=== PATIENT | female | born 1975 | race Caucasian/White ===

== ENCOUNTER 2017-12-07 18:36 | Emergency (ER) | payer BC ==
[2017-12-07] MEDS ORDERED: Sodium Chloride 0.9% 2.5 ML Syringe FLUSH PRN (20:18)
[2017-12-07] MEDS ORDERED: Sodium Chloride 0.9% 1,000 ML IV ONE (20:18)
[2017-12-07] MEDS ORDERED: Sodium Chloride 0.9% 10 ML Syringe FLUSH PRN (20:18)
--- NOTE | 2017-12-07 20:18 | EDM.PDOC ---
ED HPI GENERAL MEDICAL PROBLEM - General Chief Complaint: Flank Pain Stated Complaint: POSSIBLE KIDNEY INFECTION Time Seen by Provider: 12/07/17 20:15 Source of Information: Reports: Patient History Limitations: Reports: No Limitations - History of Present Illness INITIAL COMMENTS - FREE TEXT/NARRATIVE: HISTORY AND PHYSICAL: []42-year-old female presenting with frequency of urination flank pain History of Present Illness: []This has had multiple infections never had any stones she has to void every 2 minutes Review of Systems: As per history of present illness and below otherwise all systems reviewed and negative. Past medical history: As per history of present illness and as reviewed below otherwise noncontributory. Surgical history: As per history of present illness and as reviewed below otherwise noncontributory. Social history: No reported history of drug or alcohol abuse. Family history: As per history of present illness and as reviewed below otherwise noncontributory. Physical exam: Alert female answering questions appropriately in full sentences without any shortness of breath HEENT: Atraumatic, normocehpalic, pupils reactive, negative for conjunctival pallor or scleral icterus, mucous membranes moist, throat clear, neck supple, nontender, trachea midline. Lungs: Clear to auscultation, breath sounds equal bilaterally, chest non tender. Heart: S1S2, regular, negative for clicks, rubs, or JVD. Abdomen: Soft, nondistended, nontender. Negative for masses or hepatossplenmegaly. Positive for right costrovertebral tenderness. Pelvis: Stable nontender. Genitourinary: Deferred. Rectal: Deferred Extremities: Atraumatic, negative for cords or calf pain. Neurovascular unremarkable. Neuro: Awake, alert, oriented. Cranial nerves II through XII unremarkable. Cerebellum unremarkable. Motor and sensory unremarkable throughout. Exam nonfocal. Discussed with patient and his significant other pyelonephritis which is an infection into the kidney could be cause for this because of her hematuria would like her to follow-up with Dr. Trena Negrete urologist Diagnostics: []Ua abd/pelvis CT Therapeutics: []Rocephin 1 g Impression: []pyleonephritis Hematuria Plan: []home follow up with Dr. Trena Veras, urologist [facility] - Urology [address] [place] [id number] Current emergency room history Definitive disposition and diagnosis as appropriate pending reevaluation and review of above. Onset: Today, Sudden Duration: Getting Worse Location: Reports: Back Quality: Reports: Throbbing Severity: Moderate Improves with: Reports: None Worsens with: Reports: None Associated Symptoms: Reports: No Other Symptoms right flank Pain Score (Numeric/FACES): 5 - Related Data Allergies Allergy/AdvReac Type Severity Reaction Status Date / Time ciprofloxacin [From Cipro] Allergy Vomiting Verified 12/07/17 19:13 ciprofloxacin HCl Allergy Vomiting Verified 12/07/17 19:13 [From Cipro] erythromycin base Allergy Vomiting Verified 12/07/17 19:13 [Erythromycin Base] Sulfa (Sulfonamide Allergy Vomiting Verified 12/07/17 19:13 Antibiotics) Home Meds: Home Meds Nitrofurantoin Monohyd/M-Cryst [Macrobid 100 mg Capsule] 100 mg PO BID #20 capsule 12/07/17 [Rx] 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 ED EXAM, RENAL/ - Physical Exam Exam: See Below (see dictation) Course - Vital Signs Last Recorded V/S: Last Vital Signs Temp 36.4 C 12/07/17 19:00 Pulse 86 12/07/17 19:00 Resp 18 12/07/17 19:00 BP 145/84 H 12/07/17 19:00 Pulse Ox 100 12/07/17 19:00 - Orders/Labs/Meds Orders: Active Orders 24 hr Category Date Time Status Abdomen Pelvis wo Cont [CT] Stat Exams 12/07/17 20:15 Taken CULTURE URINE [RM] Stat Lab 12/07/17 19:03 Ordered UA W/MICROSCOPIC [URIN] Stat Lab 12/07/17 19:04 Ordered Sodium Chloride 0.9% [Normal Saline] 1,000 ml Med 12/07/17 20:18 Active IV STAT Sodium Chloride 0.9% [Saline Flush] Med 12/07/17 20:18 Active 10 ml FLUSH ASDIRECTED PRN Sodium Chloride 0.9% [Saline Flush] Med 12/07/17 20:18 Active 2.5 ml FLUSH ASDIRECTED PRN cefTRIAXone [Rocephin in Dextrose,Iso-Osm 1 GM/50 ML] 1 Med 12/07/17 21:13 Ordered gm Premix Bag 1 bag IV ONETIME Saline Lock Insert [OM.PC] Stat Oth 12/07/17 20:18 Ordered Medication Orders Sodium Chloride (Normal Saline) 1,000 mls @ 999 mls/hr IV STAT ONE Stop: 12/07/17 21:18 Last Admin: 12/07/17 20:39 Dose: 999 mls/hr Sodium Chloride (Saline Flush) 10 ml FLUSH ASDIRECTED PRN PRN Reason: Keep Vein Open Sodium Chloride (Saline Flush) 2.5 ml FLUSH ASDIRECTED PRN PRN Reason: Keep Vein Open Labs: Laboratory Tests 12/07/17 Range/Units 19:04 Urine Color YELLOW Urine Appearance CLEAR Urine pH 6.0 (5.0-8.0) Ur Specific [place] <= 1.005 (1.001-1.035) Urine Protein NEGATIVE (NEGATIVE) mg/dL Urine Glucose (UA) NEGATIVE (NEGATIVE) mg/dL Urine Ketones NEGATIVE (NEGATIVE) mg/dL Urine Occult Blood SMALL H (NEGATIVE) Urine Nitrite NEGATIVE (NEGATIVE) Urine Bilirubin NEGATIVE (NEGATIVE) Urine Urobilinogen 0.2 (<2.0) EU/dL Ur Leukocyte Esterase NEGATIVE (NEGATIVE) Urine RBC 1-3 (0-2/HPF) Urine WBC 0-2 (0-5/HPF) Ur Epithelial Cells FEW (NONE-FEW) Urine Bacteria RARE (NEGATIVE) Meds: Medications Generic Name Dose Route Start Last Admin Trade Name Freq PRN Reason Stop Dose Admin Sodium Chloride 1,000 mls @ 999 mls/hr 12/07/17 20:18 12/07/17 20:39 Normal Saline IV 12/07/17 21:18 999 mls/hr STAT ONE Administration Sodium Chloride 10 ml 12/07/17 20:18 Saline Flush FLUSH ASDIRECTED PRN Keep Vein Open Sodium Chloride 2.5 ml 12/07/17 20:18 Saline Flush FLUSH ASDIRECTED PRN Keep Vein Open Departure - Departure Time of Disposition: 21:14 Disposition: Home, Self-Care 01 Condition: Good Clinical Impression: Pyelonephritis Hematuria Qualifiers: Hematuria type: unspecified type Qualified Code(s): R31.9 - Hematuria, unspecified - Discharge Information Prescriptions: Nitrofurantoin Monohyd/M-Cryst [Macrobid 100 mg Capsule] 100 mg PO BID #20 capsule Referrals: PCP,None [Primary Care Provider] - Trena Veras MD [Physician] - Forms: ED Department Discharge Additional Instructions: The following information is given to patients seen in the emergency department who are being discharged to home. This information is to outline your options for follow-up care. We provide all patients seen in our emergency department with a follow-up referral. The need for follow-up, as well as the timing and circumstances, are variable depending upon the specifics of your emergency department visit. If you don't have a primary care physician on staff, we will provide you with a referral. We always advise you to contact your personal physician following an emergency department visit to inform them of the circumstance of the visit and for follow-up with them and/or the need for any referrals to a consulting specialist. The emergency department will also refer you to a specialist when appropriate. This referral assures that you have the opportunity for followup care with a specialist. All of these measure are taken in an effort to provide you with optimal care, which includes your followup. Under all circumstances we always encourage you to contact your private physician who remains a resource for coordinating your care. When calling for followup care, please make the office aware that this follow-up is from your recent emergency room visit. If for any reason you are refused follow-up, please contact the [facility] emergency department at and asked to speak to the emergency department charge nurse. Is felt to have a pyelonephritis which is a kidney infection on the right side Your urine had blood in it which is called hematuria Recommendation is that you have a referral to Dr. Trena Veras for follow-up care Return to the emergency department as discussed - My Orders Last 24 Hours: My Active Orders 12/07/17 19:03 CULTURE URINE [RM] Stat 12/07/17 19:04 UA W/MICROSCOPIC [URIN] Stat 12/07/17 20:15 Abdomen Pelvis wo Cont [CT] Stat 12/07/17 20:18 Sodium Chloride 0.9% [Normal Saline] 1,000 ml IV STAT Sodium Chloride 0.9% [Saline Flush] 10 ml FLUSH ASDIRECTED PRN Sodium Chloride 0.9% [Saline Flush] 2.5 ml FLUSH ASDIRECTED PRN Saline Lock Insert [OM.PC] Stat 12/07/17 21:13 cefTRIAXone [Rocephin in Dextrose,Iso-Osm 1 GM/50 ML] 1 gm Premix Bag 1 bag IV ONETIME - Assessment/Plan Last 24 Hours: My Active Orders 12/07/17 19:03 CULTURE URINE [RM] Stat 12/07/17 19:04 UA W/MICROSCOPIC [URIN] Stat 12/07/17 20:15 Abdomen Pelvis wo Cont [CT] Stat 12/07/17 20:18 Sodium Chloride 0.9% [Normal Saline] 1,000 ml IV STAT Sodium Chloride 0.9% [Saline Flush] 10 ml FLUSH ASDIRECTED PRN Sodium Chloride 0.9% [Saline Flush] 2.5 ml FLUSH ASDIRECTED PRN Saline Lock Insert [OM.PC] Stat 12/07/17 21:13 cefTRIAXone [Rocephin in Dextrose,Iso-Osm 1 GM/50 ML] 1 gm Premix Bag 1 bag IV ONETIME
[2017-12-07] MEDS ORDERED: cefTRIAXone 1 GM in Premix Bag 1 BAG IV ONE (21:13)
--- NOTE | 2017-12-08 13:59 | CT ---
EXAM DATE: 12/07/17 PATIENT'S AGE: 42 Patient: ZACK WESTON Facility: [place], [place] Site . Site : 1975 Study: CT Abdomen/Pelvis [id number]/29/2018 8:41:35 PM Ordering Physician: Doctor Grigsby Final Report: HISTORY: Right flank pain with urinary frequency. TECHNIQUE: The abdomen and pelvis were scanned using helical technique at 3 mm intervals without IV contrast. Sagittal and coronal reconstructions were performed. FINDINGS: Lung bases: No infiltrate. Liver and gallbladder: The liver parenchyma is homogeneous. No calcified gallstones. Spleen, pancreas and adrenal glands: Unremarkable. Kidneys and bladder: 2.5 cm parapelvic cyst is seen in mid pole left kidney. The right kidney has a small extrarenal pelvis. No calcified urolithiasis or hydronephrosis. The bladder is decompressed. Retroperitoneum an lymph nodes: Aorta is normal in caliber. No pathologic periaortic lymphadenopathy seen. GI tract: Stomach is decompressed. No dilated small bowel loops are seen. Normal appendix. Stool and gas is seen throughout the colon. No diverticulitis. There is no free air in the abdomen. There is no free fluid the pelvis. Pelvic organ: Bilateral tubal ligation clips. Uterus and adnexa are otherwise normal. Abdominal wall: Tiny fat containing umbilical hernia without inflammatory change. Osseous structures: Normal for age. IMPRESSION: 1. 2.5 cm left parapelvic cyst. 2. No calcified urolithiasis, hydronephrosis or ureteral obstruction. 3. Normal appendix. Dictated by Mar Matamoros MD @ 12/07/2017 9:07:43 PM Please note that all CT scans at this facility use dose modulation, iterative reconstruction, and/or weight-based dosing when appropriate to reduce radiation dose to as low as reasonably achievable. Dictated by: Mar Matamoros MD @ 12/07/2017 21:08:09 (Electronic Signature) Report Signed by Proxy. [facility]
== END 2017-12-07 21:50 | disposition home or self-care (01) ==
LOC: MW.ED 18:36
DX: N12 Tubulo-interstitial nephritis, not specified as acute or chronic (principal); Z88.1 Allergy status to other antibiotic agents; Z88.2 Allergy status to sulfonamides; F17.210 Nicotine dependence, cigarettes, uncomplicated
CPT/HCPCS: 74176; 81001; 87086; 96361; 96365; 99284; J0696; J7040; 99283

== ENCOUNTER 2018-09-01 16:14 | Emergency (ER) | payer BC ==
--- NOTE | 2018-09-01 17:14 | EDM.PDOC ---
ED HPI GENERAL MEDICAL PROBLEM - General Chief Complaint: Respiratory Problem Stated Complaint: COUGH Time Seen by Provider: 09/01/18 17:08 Source of Information: Reports: Patient History Limitations: Reports: No Limitations - History of Present Illness INITIAL COMMENTS - FREE TEXT/NARRATIVE: HISTORY AND PHYSICAL: History of present illness: Patient is a 42-year-old female here with complaint of cough. She states she was seen 2 weeks ago and put on antibiotic for acute bronchitis. Was seen again 1 week ago and found to have pneumonia on chest x-ray and treated with levaquin. She states she does feel better but her cough is lingering and she has tightness in her chest. She is coughing so hard she vomits and states she had some blood streaked in her vomit. She does smoke 1/2-1ppd x 18 years. Review of systems: As per history of present illness and below otherwise all systems reviewed and negative. Past medical history: As per history of present illness and as reviewed below otherwise noncontributory. Surgical history: As per history of present illness and as reviewed below otherwise noncontributory. Social history: No reported history of drug or alcohol abuse. Family history: As per history of present illness and as reviewed below otherwise noncontributory. Physical exam: General: Patient sitting comfortably in no acute distress and nontoxic appearing HEENT: Atraumatic, normocephalic, pupils reactive, negative for conjunctival pallor or scleral icterus, mucous membranes moist, throat clear, neck supple, nontender, trachea midline. No meningeal signs. Lungs: Minimal wheezing to lung bases bilaterally, breath sounds equal bilaterally, chest nontender. Heart: S1S2, regular, negative for clicks, rubs, or overt murmur. Abdomen: Soft, nondistended, nontender. Negative for masses or hepatosplenomegaly. Negative for costovertebral tenderness. Pelvis: Stable nontender. Genitourinary: Deferred. Rectal: Deferred. Extremities: Atraumatic, negative for cords or calf pain. Neurovascular unremarkable. Neuro: Awake, alert, oriented. Cranial nerves II through XII unremarkable. Cerebellum unremarkable. Motor and sensory unremarkable throughout. Exam nonfocal. Notes: Diagnostics: Influenza Declined chest x-ray Therapeutics: None Prescriptions: Medrol dose pack Ventolin inhaler Impression: Bronchitis Plan: 1. Take medications as instructed 2. Follow-up with primary care provider 3. Return to ED as needed as discussed Definitive disposition and diagnosis as appropriate pending reevaluation and review of above. - Related Data Allergies Allergy/AdvReac Type Severity Reaction Status Date / Time acetaminophen [From Percocet] Allergy Vomiting Verified 09/01/18 17:06 ciprofloxacin [From Cipro] Allergy Vomiting Verified 09/01/18 17:06 ciprofloxacin HCl Allergy Vomiting Verified 09/01/18 17:06 [From Cipro] erythromycin base Allergy Vomiting Verified 09/01/18 17:06 [Erythromycin Base] hydrocodone [From Vicodin] Allergy Vomiting Verified 09/01/18 17:06 oxycodone [From Percocet] Allergy Vomiting Verified 09/01/18 17:06 Sulfa (Sulfonamide Allergy Vomiting Verified 09/01/18 17:06 Antibiotics) Home Meds: Home Meds Albuterol [Ventolin HFA] 1 puff INH Q4H #1 inhaler 09/01/18 [Rx] methylPREDNISolone [Medrol] 4 mg PO ASDIRECTED #1 tab.ds.pk 09/01/18 [Rx] Past Medical History HEENT History: Reports: None Gastrointestinal History: Reports: GERD Genitourinary History: Reports: None 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 ED EXAM, GENERAL - Physical Exam Exam: See Below (see dictation) Course - Vital Signs Last Recorded V/S: Last Vital Signs Temp 97.0 F 09/01/18 17:03 Pulse 94 09/01/18 17:03 Resp 18 09/01/18 17:03 BP 146/89 H 09/01/18 17:03 Pulse Ox 99 09/01/18 17:03 Departure - Departure Time of Disposition: 18:04 Disposition: Home, Self-Care 01 Condition: Good Clinical Impression: Bronchitis - Discharge Information Prescriptions: Albuterol [Ventolin HFA] 1 puff INH Q4H #1 inhaler methylPREDNISolone [Medrol] 4 mg PO ASDIRECTED #1 tab.ds.pk Referrals: Izabela Celestin, COLLECTION TEAM LEAD [Primary Care Provider] - Forms: ED Department Discharge Additional Instructions: The following information is given to patients seen in the emergency department who are being discharged to home. This information is to outline your options for follow-up care. We provide all patients seen in our emergency department with a follow-up referral. The need for follow-up, as well as the timing and circumstances, are variable depending upon the specifics of your emergency department visit. If you don't have a primary care physician on staff, we will provide you with a referral. We always advise you to contact your personal physician following an emergency department visit to inform them of the circumstance of the visit and for follow-up with them and/or the need for any referrals to a consulting specialist. The emergency department will also refer you to a specialist when appropriate. This referral assures that you have the opportunity for follow-up care with a specialist. All of these measure are taken in an effort to provide you with optimal care, which includes your follow-up. Under all circumstances we always encourage you to contact your private physician who remains a resource for coordinating your care. When calling for follow-up care, please make the office aware that this follow-up is from your recent emergency room visit. If for any reason you are refused follow-up, please contact the [facility] Emergency Department at and asked to speak to the emergency department charge nurse. [facility] [address] [place] [id number] 1. Take medications as instructed 2. Follow-up with primary care provider 3. Return to ED as needed as discussed
== END 2018-09-01 18:14 | disposition home or self-care (01) ==
LOC: MW.ED 16:14
DX: J40 Bronchitis, not specified as acute or chronic (principal); Z88.1 Allergy status to other antibiotic agents; Z88.6 Allergy status to analgesic agent; Z88.2 Allergy status to sulfonamides
CPT/HCPCS: 87804; 99284

== ENCOUNTER 2018-09-09 10:09 | Emergency (ER) | payer BC ==
--- NOTE | 2018-09-09 10:31 | EDM.PDOC ---
ED HPI GENERAL MEDICAL PROBLEM - General Chief Complaint: Lower Extremity Injury/Pain Stated Complaint: LT ANKLE PAIN Time Seen by Provider: 09/09/18 10:21 - History of Present Illness INITIAL COMMENTS - FREE TEXT/NARRATIVE: HISTORY AND PHYSICAL: History of present illness: The patient is a 42-year-old female who presents after rolling her left ankle while getting out of her vehicle this morning. She says she has pain to the left ankle and feels that when she puts weight on it it feels like it is cracking. She has not noticed any swelling there and has no distal sensory changes. She has no proximal leg knee hip or thigh pain. She did not hit her head pass out or black out and has no head neck or back pain. Prior to these events she was in her usual state of good health. Patient states that she had a hysterectomy in the past Review of systems: As per history of present illness and below otherwise all systems reviewed and negative. Past medical history: As per history of present illness and as reviewed below otherwise noncontributory. Surgical history: As per history of present illness and as reviewed below otherwise noncontributory. Social history: No reported history of drug or alcohol abuse. Family history: As per history of present illness and as reviewed below otherwise noncontributory. Physical exam: General: Well-developed well-nourished female who is nontoxic and vital signs were noted by me. HEENT: Atraumatic, normocephalic, negative for conjunctival pallor or scleral icterus, mucous membranes moist, throat clear, neck supple, nontender, trachea midline. Lungs: Clear to auscultation, breath sounds equal bilaterally, chest nontender. Heart: S1S2, regular rhythm and slightly tachycardic rate on my evaluation no overt murmurs Abdomen: Soft, nondistended, nontender. NABS Pelvis: Stable nontender. No lateral hip tenderness on the left Genitourinary: Deferred. Rectal: Deferred. Extremities: Atraumatic appearing with full range of motion of all extremities except the left ankle with some mild tenderness laterally without much soft tissue swelling and no ecchymosis erythema or soft tissue changes. The distal foot and metatarsals are intact without tenderness as is the proximal tib-fib and knee., negative for cords or calf pain. Neurovascular unremarkable. Neuro: Awake, alert, oriented. Cranial nerves II through XII unremarkable. Cerebellum unremarkable. Motor and sensory unremarkable throughout. Exam nonfocal. Diagnostics: X-ray left ankle Therapeutics: Patient says she took Motrin this morning Air cast and crutches Patient is aware of x-ray results including the calcaneal spur. Impression: Left ankle injury Definitive disposition and diagnosis as appropriate pending reevaluation and review of above. Left Ankle Pain Score (Numeric/FACES): 5 - Related Data Allergies Allergy/AdvReac Type Severity Reaction Status Date / Time acetaminophen [From Percocet] Allergy Vomiting Verified 09/09/18 10:21 ciprofloxacin [From Cipro] Allergy Vomiting Verified 09/09/18 10:21 ciprofloxacin HCl Allergy Vomiting Verified 09/09/18 10:21 [From Cipro] erythromycin base Allergy Vomiting Verified 09/09/18 10:21 [Erythromycin Base] hydrocodone [From Vicodin] Allergy Vomiting Verified 09/09/18 10:21 oxycodone [From Percocet] Allergy Vomiting Verified 09/09/18 10:21 Sulfa (Sulfonamide Allergy Vomiting Verified 09/09/18 10:21 Antibiotics) Home Meds: Home Meds . [No Known Home Meds] 09/09/18 [History] Past Medical History HEENT History: Reports: None Gastrointestinal History: Reports: GERD Genitourinary History: Reports: None RNFA History: Reports: Endocrine/Metabolic History: Reports: Obesity/BMI 30+ - Infectious Disease History Infectious Disease History: Reports: Chicken Pox - Past Surgical History Head Surgeries/Procedures: Reports: None HEENT Surgical History: Reports: Tonsillectomy Female Surgical History: Reports: Endometrial Ablation, Tubal Ligation Social & Family History - Family History Family Medical History: Noncontributory - Caffeine Use Caffeine Use: Reports: Soda Review of Systems - Review of Systems Review Of Systems: ROS reveals no pertinent complaints other than HPI. ED EXAM, GENERAL - Physical Exam Exam: See Below (See dictation) Course - Vital Signs Last Recorded V/S: Last Vital Signs Temp 36.2 C 09/09/18 10:22 Pulse 95 09/09/18 10:22 Resp 16 09/09/18 10:22 BP 136/83 09/09/18 10:22 Pulse Ox 96 09/09/18 10:22 - Orders/Labs/Meds Orders: Active Orders 24 hr Category Date Time Status DME for Discharge [COMM] Stat Oth 09/09/18 11:02 Ordered Departure - Departure Time of Disposition: 11:04 Disposition: Home, Self-Care 01 Condition: Good Clinical Impression: Left ankle injury Qualifiers: Encounter type: initial encounter Qualified Code(s): S99.912A - Unspecified injury of left ankle, initial encounter - Discharge Information Referrals: PCP,None [Primary Care Provider] - Forms: ED Department Discharge Additional Instructions: The following information is given to patients seen in the emergency department who are being discharged to home. This information is to outline your options for follow-up care. We provide all patients seen in our emergency department with a follow-up referral. The need for follow-up, as well as the timing and circumstances, are variable depending upon the specifics of your emergency department visit. If you don't have a primary care physician on staff, we will provide you with a referral. We always advise you to contact your personal physician following an emergency department visit to inform them of the circumstance of the visit and for follow-up with them and/or the need for any referrals to a consulting specialist. The emergency department will also refer you to a specialist when appropriate. This referral assures that you have the opportunity for followup care with a specialist. All of these measure are taken in an effort to provide you with optimal care, which includes your followup. Under all circumstances we always encourage you to contact your private physician who remains a resource for coordinating your care. When calling for followup care, please make the office aware that this follow-up is from your recent emergency room visit. If for any reason you are refused follow-up, please contact the [facility] emergency department at and ask to speak to the emergency department charge nurse. [facility]--Orthopedic clinic Professional Building [address] [place] [id number] Ice and elevate the area as much as possible and try not to weight-bear on it using crutches as we discussed. Use [id number] medications for pain management. Please contact our orthopedics clinic for follow-up next week for reevaluation and further care and return to ER as needed and as discussed - My Orders Last 24 Hours: My Active Orders 09/09/18 11:02 DME for Discharge [COMM] Stat - Assessment/Plan Last 24 Hours: My Active Orders 09/09/18 11:02 DME for Discharge [COMM] Stat
--- NOTE | 2018-09-09 10:57 | CR ---
EXAMINATION: Left ankle HISTORY: Pain COMPARISON: None TECHNIQUE: 3 views FINDINGS/IMPRESSION: Tiny opacity noted within the medial malleolus, however no significant overlying soft tissue swelling. Bone mineralization, ankle mortise and joint spaces are preserved. Moderate plantar calcaneal spur.
== END 2018-09-09 11:10 | disposition home or self-care (01) ==
LOC: MW.ED 10:09
DX: S99.912A Unspecified injury of left ankle, initial encounter (principal); Z88.8 Allergy status to other drugs, medicaments and biological substances; Z88.1 Allergy status to other antibiotic agents; Z88.5 Allergy status to narcotic agent; Z88.2 Allergy status to sulfonamides; X50.1XXA Overexertion from prolonged static or awkward postures, initial encounter
CPT/HCPCS: 73610-26-LT; 73610-LT; 99283-25

== ENCOUNTER 2018-09-27 21:59 | Emergency (ER) | payer BC ==
[2018-09-27] MEDS ORDERED: methylPREDNISolone Sodium Succinate 125 MG/2 ML SDV IM ONE (22:15)
[2018-09-27] MEDS ORDERED: Albuterol/Ipratropium 3.0-0.5 MG/3 ML Neb Soln NEB ONE (22:15)
--- NOTE | 2018-09-27 22:15 | EDM.PDOC ---
ED HPI GENERAL MEDICAL PROBLEM - General Chief Complaint: Respiratory Problem Stated Complaint: SOB Time Seen by Provider: 09/27/18 22:15 Source of Information: Reports: Patient - History of Present Illness INITIAL COMMENTS - FREE TEXT/NARRATIVE: HISTORY AND PHYSICAL: History of present illness: [Patient presents with persistent cough over the last month she has previous x- ray she has been on Levaquin for 5 days with improvement during those 5 days however cough returned shortly after she has also been on a steroid and continue his pro-air inhaler now she is a smoker half pack per day long-term she has cut back somewhat coughing currently no fever chills sweats no chest pain shortness breath headache dizziness or palpitation after DuoNeb and Solu- Medrol ] Review of systems: As per history of present illness and below otherwise all systems reviewed and negative. Past medical history: As per history of present illness and as reviewed below otherwise noncontributory. Surgical history: As per history of present illness and as reviewed below otherwise noncontributory. Social history: No reported history of drug or alcohol abuse. Family history: As per history of present illness and as reviewed below otherwise noncontributory. Physical exam: HEENT: Atraumatic, normocephalic, pupils reactive, negative for conjunctival pallor or scleral icterus, mucous membranes moist, throat clear, neck supple, nontender, trachea midline. Lungs: Clear to auscultation, breath sounds equal bilaterally, chest nontender. Heart: S1S2, regular, negative for clicks, rubs, or JVD. Abdomen: Soft, nondistended, nontender. Negative for masses or hepatosplenomegaly. Negative for costovertebral tenderness. Pelvis: Stable nontender. Genitourinary: Deferred. Rectal: Deferred. Extremities: Atraumatic, negative for cords or calf pain. Neurovascular unremarkable. Neuro: Awake, alert, oriented. Cranial nerves II through XII unremarkable. Cerebellum unremarkable. Motor and sensory unremarkable throughout. Exam nonfocal. Diagnostics: [Influenza Chest 1 view ] Therapeutics: [ DuoNeb Solu-Medrol 125 mg IM ] Evoclin 500 mg by mouth daily #10 no refill Medrol Dosepak Continue HFA Impression: [ infiltrates on chest x-ray ] persistent cough Definitive disposition and diagnosis as appropriate pending reevaluation and review of above. chest area Pain Score (Numeric/FACES): 2 - Related Data Allergies Allergy/AdvReac Type Severity Reaction Status Date / Time acetaminophen [From Percocet] Allergy Vomiting Verified 09/27/18 22:06 ciprofloxacin [From Cipro] Allergy Vomiting Verified 09/27/18 22:06 ciprofloxacin HCl Allergy Vomiting Verified 09/27/18 22:06 [From Cipro] erythromycin base Allergy Vomiting Verified 09/27/18 22:06 [Erythromycin Base] hydrocodone [From Vicodin] Allergy Vomiting Verified 09/27/18 22:06 oxycodone [From Percocet] Allergy Vomiting Verified 09/27/18 22:06 Sulfa (Sulfonamide Allergy Vomiting Verified 09/27/18 22:06 Antibiotics) Home Meds: Home Meds Albuterol Sulfate [Albuterol Sulfate Hfa] 8.5 gm IH ASDIRECTED 09/27/18 [History ] Past Medical History HEENT History: Reports: None Cardiovascular History: Reports: None Respiratory History: Reports: None Gastrointestinal History: Reports: GERD Genitourinary History: Reports: None [place] [employer] History: Reports: Musculoskeletal History: Reports: None Neurological History: Reports: None Psychiatric History: Reports: None Endocrine/Metabolic History: Reports: Obesity/BMI 30+ Hematologic History: Reports: None Immunologic History: Reports: None Oncologic (Cancer) History: Reports: None Dermatologic History: Reports: None - Infectious Disease History Infectious Disease History: Reports: None - Past Surgical History Head Surgeries/Procedures: Reports: None HEENT Surgical History: Reports: Tonsillectomy Female Surgical History: Reports: Endometrial Ablation, Tubal Ligation Social & Family History - Family History Family Medical History: Noncontributory - Tobacco Use Smoking Status *Q: Current Every Day Smoker Years of Tobacco use: 15 Packs/Tins Daily: 0.5 - Caffeine Use Caffeine Use: Reports: Soda - Recreational Drug Use Recreational Drug Use: No ED ROS GENERAL - Review of Systems Review Of Systems: See Below ED EXAM, GENERAL - Physical Exam Exam: See Below Course - Vital Signs Last Recorded V/S: Last Vital Signs Temp 98.1 F 09/27/18 22:07 Pulse 125 H 09/27/18 22:07 Resp 20 09/27/18 22:07 BP 144/75 H 09/27/18 22:07 Pulse Ox 96 09/27/18 22:07 - Orders/Labs/Meds Orders: Active Orders 24 hr Category Date Time Status RT Aerosol Therapy [RC] ASDIRECTED Care 09/27/18 22:15 Active Meds: Medications Discontinued Medications Generic Name Dose Route Start Last Admin Trade Name Porter PRN Reason Stop Dose Admin Albuterol/Ipratropium 3 ml 09/27/18 22:15 09/27/18 22:28 Duoneb 3.0-0.5 Mg/3 Ml NEB 09/27/18 22:16 3 ml ONETIME ONE Administration Methylprednisolone Sodium Succinate 125 mg 09/27/18 22:15 09/27/18 22:29 Solu-Medrol IM 09/27/18 22:16 125 mg ONETIME ONE Administration Departure - Departure Time of Disposition: 23:12 Disposition: Home, Self-Care 01 Condition: Good Clinical Impression: Pulmonary infiltrate on chest x-ray, Persistent cough - Discharge Information Referrals: PCP,None [Primary Care Provider] - Forms: ED Department Discharge Additional Instructions: The following information is given to patients seen in the emergency department who are being discharged to home. This information is to outline your options for follow-up care. We provide all patients seen in our emergency department with a follow-up referral. The need for follow-up, as well as the timing and circumstances, are variable depending upon the specifics of your emergency department visit. If you don't have a primary care physician on staff, we will provide you with a referral. We always advise you to contact your personal physician following an emergency department visit to inform them of the circumstance of the visit and for follow-up with them and/or the need for any referrals to a consulting specialist. The emergency department will also refer you to a specialist when appropriate. This referral assures that you have the opportunity for follow-up care with a specialist. All of these measure are taken in an effort to provide you with optimal care, which includes your follow-up. Under all circumstances we always encourage you to contact your private physician who remains a resource for coordinating your care. When calling for follow-up care, please make the office aware that this follow-up is from your recent emergency room visit. If for any reason you are refused follow-up, please contact the [facility] emergency department at and asked to speak to the emergency department charge nurse. - My Orders Last 24 Hours: My Active Orders 09/27/18 22:15 RT Aerosol Therapy [RC] ASDIRECTED - Assessment/Plan Last 24 Hours: My Active Orders 09/27/18 22:15 RT Aerosol Therapy [RC] ASDIRECTED
--- NOTE | 2018-09-27 23:03 | CR ---
INDICATION: Shortness of breath, history of bronchitis and pneumonia TECHNIQUE: Chest radiograph 1 view COMPARISON: 08/25/2018 FINDINGS: Mediastinum: The mediastinum is normal in appearance. The heart silhouette is normal in size and morphology. Lung: Diffuse ill-defined airspace infiltrates are present in the mid lower lung zones bilaterally, new from prior examination. No sign of pleural effusion seen. No pneumothorax is identified. Musculoskeletal: Unremarkable for age. IMPRESSION: 1. Diffuse ill-defined airspace infiltrates are present in the mid lower lung zones bilaterally, new from prior examination. Findings are suspicious for pneumonia. Dictated by Ricardo Chaney MD @ 09/27/2018 11:01:00 PM Dictated by: Ricardo Chaney MD @ 09/27/2018 23:01:03 (Electronically Signed)
== END 2018-09-27 23:22 | disposition home or self-care (01) ==
LOC: MW.ED 21:59
DX: R05 Cough (principal); R91.8 Other nonspecific abnormal finding of lung field; F17.210 Nicotine dependence, cigarettes, uncomplicated; Z88.1 Allergy status to other antibiotic agents; Z88.6 Allergy status to analgesic agent; Z88.2 Allergy status to sulfonamides; Z98.51 Tubal ligation status; Z98.890 Other specified postprocedural states
CPT/HCPCS: 71045; 87804; 94640; 96372; 99284; J2930; J7620-GY

== ENCOUNTER 2019-08-28 16:58 | Emergency (ER) | payer BC, OTHER ==
--- NOTE | 2019-08-28 18:12 | EDM.PDOC ---
ED HPI GENERAL MEDICAL PROBLEM - General Chief Complaint: Respiratory Problem Stated Complaint: ANEMONIA Time Seen by Provider: 08/28/19 18:12 Source of Information: Reports: Patient History Limitations: Reports: No Limitations - History of Present Illness INITIAL COMMENTS - FREE TEXT/NARRATIVE: HISTORY AND PHYSICAL: History of present illness: Patient is a 43-year-old female presents to the ED with complaint of possible pneumonia. Patient states she was treated for pneumonia 2 weeks ago. She states she finished levequin about 1 week ago. She had a repeat chest x-ray done 4 days ago and was told pneumonia was still present but her symptoms were improved and no further antibiotic started. Patient states in the past 4 days she has had worsening cough and shortness of breath. She states she had a fever of 101F last night. Review of systems: As per history of present illness and below otherwise all systems reviewed and negative. Past medical history: As per history of present illness and as reviewed below otherwise noncontributory. Surgical history: As per history of present illness and as reviewed below otherwise noncontributory. Social history: No reported history of drug or alcohol abuse. Family history: As per history of present illness and as reviewed below otherwise noncontributory. Physical exam: General: Patient sitting comfortably in no acute distress and nontoxic appearing HEENT: Atraumatic, normocephalic, pupils reactive, negative for conjunctival pallor or scleral icterus, mucous membranes moist, throat clear, neck supple, nontender, trachea midline. No meningeal signs. Lungs: Rhonchi throughout all lung vick. chest nontender. Heart: S1S2, regular, negative for clicks, rubs, or overt murmur. Abdomen: Soft, nondistended, nontender. Negative for masses or hepatosplenomegaly. Negative for costovertebral tenderness. No rigidity, rebound , guarding. Pelvis: Stable nontender. Genitourinary: Deferred. Rectal: Deferred. Extremities: Atraumatic, negative for cords or calf pain. Neurovascular unremarkable. Neuro: Awake, alert, oriented. Cranial nerves II through XII unremarkable. Cerebellum unremarkable. Motor and sensory unremarkable throughout. Exam nonfocal. Notes: Patient has elevated WBC. She states she did have an elevated WBC 2 weeks ago when she was initially started antibiotics. Radiologist read CXR as possible CHF, patients BNP is <500 (197) and patient denies lower extremity swelling. No history of CHF. Findings more likely pneumonia given patient history and presentation. Patient was offered admission for IV antibiotics secondary to failed outpatient treatment. She declines admission at this time. Diagnostics: CBC, CMP, lactate, blood culture x 2, CXR, BNP Therapeutics: 500mL bolus IV 1g Rocephin IV Prescriptions: Azithromycin Impression: Pneumonia Plan: Take medications as prescribed Follow up with primary care provider Return to ED as needed as discussed Definitive disposition and diagnosis as appropriate pending reevaluation and review of above. lungs Pain Score (Numeric/FACES): 3 - Related Data Allergies Allergy/AdvReac Type Severity Reaction Status Date / Time acetaminophen [From Percocet] Allergy Vomiting Verified 08/28/19 17:54 ciprofloxacin [From Cipro] Allergy Vomiting Verified 08/28/19 17:54 ciprofloxacin HCl Allergy Vomiting Verified 08/28/19 17:54 [From Cipro] erythromycin base Allergy Vomiting Verified 08/28/19 17:54 [Erythromycin Base] hydrocodone [From Vicodin] Allergy Vomiting Verified 08/28/19 17:54 oxycodone [From Percocet] Allergy Vomiting Verified 08/28/19 17:54 Sulfa (Sulfonamide Allergy Vomiting Verified 08/28/19 17:54 Antibiotics) Home Meds: Home Meds Albuterol Sulfate [Albuterol Sulfate Hfa] 8.5 gm IH ASDIRECTED 09/27/18 [History ] Azithromycin [Zithromax] 250 mg PO ASDIRECTED #1 dosepk 08/28/19 [Rx] methylPREDNISolone [Medrol] 4 mg PO ASDIRECTED #1 tab.ds.pk 08/28/19 [Rx] Past Medical History HEENT History: Reports: None Cardiovascular History: Reports: None Respiratory History: Reports: None Gastrointestinal History: Reports: GERD Genitourinary History: Reports: None FACTORY EXPERT History: Reports: Musculoskeletal History: Reports: None Neurological History: Reports: None Psychiatric History: Reports: None Endocrine/Metabolic History: Reports: Obesity/BMI 30+ Hematologic History: Reports: None Immunologic History: Reports: None Oncologic (Cancer) History: Reports: None Dermatologic History: Reports: None - Infectious Disease History Infectious Disease History: Reports: None - Past Surgical History Head Surgeries/Procedures: Reports: None HEENT Surgical History: Reports: Tonsillectomy Female Surgical History: Reports: Endometrial Ablation, Tubal Ligation Social & Family History - Family History Family Medical History: Noncontributory - Tobacco Use Smoking Status *Q: Current Every Day Smoker Years of Tobacco use: 16 Packs/Tins Daily: 0.5 - Caffeine Use Caffeine Use: Reports: Soda - Recreational Drug Use Recreational Drug Use: No ED ROS GENERAL - Review of Systems Review Of Systems: Comprehensive ROS is negative, except as noted in HPI. ED EXAM, GENERAL - Physical Exam Exam: See Below (see dictation) Course - Vital Signs Last Recorded V/S: Last Vital Signs Temp 97.3 F 08/28/19 17:50 Pulse 110 H 08/28/19 17:50 Resp 20 08/28/19 17:50 BP 147/84 H 08/28/19 17:50 Pulse Ox 98 08/28/19 17:50 - Orders/Labs/Meds Orders: Active Orders 24 hr Category Date Time Status CULTURE BLOOD [BC] Stat Lab 08/28/19 18:50 Received CULTURE BLOOD [BC] Stat Lab 08/28/19 19:01 Received Sodium Chloride 0.9% [Normal Saline] 500 ml Med 08/28/19 19:15 Active IV .BOLUS Sodium Chloride 0.9% [Saline Flush] Med 08/28/19 18:17 Active 10 ml FLUSH ASDIRECTED PRN Sodium Chloride 0.9% [Saline Flush] Med 08/28/19 18:17 Active 2.5 ml FLUSH ASDIRECTED PRN Blood Culture x2 Reflex Set [OM.PC] Stat Oth 08/28/19 18:17 Ordered Saline Lock Insert [OM.PC] Stat Oth 08/28/19 18:17 Ordered Medication Orders Sodium Chloride (Normal Saline) 500 mls @ 500 mls/hr IV .BOLUS CHLOÉ Last Admin: 08/28/19 19:16 Dose: 500 mls/hr Sodium Chloride (Saline Flush) 10 ml FLUSH ASDIRECTED PRN PRN Reason: Keep Vein Open Sodium Chloride (Saline Flush) 2.5 ml FLUSH ASDIRECTED PRN PRN Reason: Keep Vein Open Labs: Laboratory Tests 08/28/19 08/28/19 08/28/19 Range/Units 18:50 18:50 18:50 WBC 18.91 H (4.0-11.0) K/uL RBC 4.52 (4.30-5.90) M/uL Hgb 12.4 (12.0-16.0) g/dL Hct 37.5 (36.0-46.0) % MCV 83.0 (80.0-98.0) fL MCH 27.4 (27.0-32.0) pg MCHC 33.1 (31.0-37.0) g/dL RDW Std Deviation 43.4 (28.0-62.0) fl RDW Coeff of Aniket 15 (11.0-15.0) % Plt Count 300 (150-400) K/uL MPV 9.20 (7.40-12.00) fL Neut % (Auto) 84.3 H (48.0-80.0) % Lymph % (Auto) 8.4 L (16.0-40.0) % [place] % (Auto) 6.0 (0.0-15.0) % Eos % (Auto) 1.0 (0.0-7.0) % Baso % (Auto) 0.3 (0.0-1.5) % Neut # (Auto) 15.9 H (1.4-5.7) K/uL Lymph # (Auto) 1.6 (0.6-2.4) K/uL [place] # (Auto) 1.1 H (0.0-0.8) K/uL Eos # (Auto) 0.2 (0.0-0.7) K/uL Baso # (Auto) 0.1 (0.0-0.1) K/uL Nucleated RBC % 0.0 /100WBC Nucleated RBCs # 0 K/uL Lactate 1.0 (0.20-2.00) mmol/L Sodium 142 (136-145) mmol/L Potassium 4.0 (3.5-5.1) mmol/L Chloride 106 (98-107) mmol/L Carbon Dioxide 23.5 (21.0-32.0) mmol/L BUN 9 (7.0-18.0) mg/dL Creatinine 0.7 (0.6-1.0) mg/dL Est Cr Clr Drug Dosing 95.17 mL/min Estimated GFR (MDRD) > 60.0 ml/min Glucose 99 (74-106) mg/dL Calcium 9.1 (8.5-10.1) mg/dL Total Bilirubin 1.6 H (0.2-1.0) mg/dL AST 15 (15-37) IU/L ALT 19 (14-63) IU/L Alkaline Phosphatase 99 (46-116) U/L B-Natriuretic Peptide (<100) PG/ML Total Protein 7.6 (6.4-8.2) g/dL Albumin 3.8 (3.4-5.0) g/dL Globulin 3.8 (2.6-4.0) g/dL Albumin/Globulin Ratio 1.0 (0.9-1.6) 08/28/19 Range/Units 18:50 WBC (4.0-11.0) K/uL RBC (4.30-5.90) M/uL Hgb (12.0-16.0) g/dL Hct (36.0-46.0) % MCV (80.0-98.0) fL MCH (27.0-32.0) pg MCHC (31.0-37.0) g/dL RDW Std Deviation (28.0-62.0) fl RDW Coeff of Aniket (11.0-15.0) % Plt Count (150-400) K/uL MPV (7.40-12.00) fL Neut % (Auto) (48.0-80.0) % Lymph % (Auto) (16.0-40.0) % [place] % (Auto) (0.0-15.0) % Eos % (Auto) (0.0-7.0) % Baso % (Auto) (0.0-1.5) % Neut # (Auto) (1.4-5.7) K/uL Lymph # (Auto) (0.6-2.4) K/uL [place] # (Auto) (0.0-0.8) K/uL Eos # (Auto) (0.0-0.7) K/uL Baso # (Auto) (0.0-0.1) K/uL Nucleated RBC % /100WBC Nucleated RBCs # K/uL Lactate (0.20-2.00) mmol/L Sodium (136-145) mmol/L Potassium (3.5-5.1) mmol/L Chloride (98-107) mmol/L Carbon Dioxide (21.0-32.0) mmol/L BUN (7.0-18.0) mg/dL Creatinine (0.6-1.0) mg/dL Est Cr Clr Drug Dosing mL/min Estimated GFR (MDRD) ml/min Glucose (74-106) mg/dL Calcium (8.5-10.1) mg/dL Total Bilirubin (0.2-1.0) mg/dL AST (15-37) IU/L ALT (14-63) IU/L Alkaline Phosphatase (46-116) U/L B-Natriuretic Peptide 197 H (<100) PG/ML Total Protein (6.4-8.2) g/dL Albumin (3.4-5.0) g/dL Globulin (2.6-4.0) g/dL Albumin/Globulin Ratio (0.9-1.6) Meds: Medications Generic Name Dose Route Start Last Admin Trade Name Lucioq PRN Reason Stop Dose Admin Sodium Chloride 500 mls @ 500 mls/hr 08/28/19 19:15 08/28/19 19:16 Normal Saline IV 500 mls/hr .BOLUS CHLOÉ Administration Sodium Chloride 10 ml 08/28/19 18:17 Saline Flush FLUSH ASDIRECTED PRN Keep Vein Open Sodium Chloride 2.5 ml 08/28/19 18:17 Saline Flush FLUSH ASDIRECTED PRN Keep Vein Open Discontinued Medications Generic Name Dose Route Start Last Admin Trade Name Porter PRN Reason Stop Dose Admin Ceftriaxone Sodium 1 gm 08/28/19 20:03 08/28/19 20:14 Rocephin IM 08/28/19 20:04 Not Given ONETIME ONE Sodium Chloride 1,000 mls @ 999 mls/hr 08/28/19 18:17 08/28/19 20:14 Normal Saline IV 08/28/19 19:17 Not Given STAT ONE Ceftriaxone Sodium/Dextrose Confirm 08/28/19 20:11 08/28/19 20:14 Rocephin In Dextrose,Iso-Osm 1 Gm/50 Ml Administered 08/28/19 20:12 Not Given Dose 50 mls @ as directed .ROUTE .STK-MED ONE Ceftriaxone Sodium/Dextrose 1 50 mls @ 100 mls/hr 08/28/19 20:13 08/28/19 20: 15 gm/ Premix IV 02/17/20 20:42 100 mls/hr ONETIME ONE Administration Departure - Departure Time of Disposition: 21:15 Disposition: Home, Self-Care 01 Condition: Good Clinical Impression: Pneumonia - Discharge Information Prescriptions: Azithromycin [Zithromax] 250 mg PO ASDIRECTED #1 dosepk methylPREDNISolone [Medrol] 4 mg PO ASDIRECTED #1 tab.ds.pk Instructions: Community-Acquired Pneumonia, Adult, [id number] Referrals: Izabela Celestin, PROGRAM MANAGEMENT INTERN [Primary Care Provider] - Forms: ED Department Discharge Additional Instructions: The following information is given to patients seen in the emergency department who are being discharged to home. This information is to outline your options for follow-up care. We provide all patients seen in our emergency department with a follow-up referral. The need for follow-up, as well as the timing and circumstances, are variable depending upon the specifics of your emergency department visit. If you don't have a primary care physician on staff, we will provide you with a referral. We always advise you to contact your personal physician following an emergency department visit to inform them of the circumstance of the visit and for follow-up with them and/or the need for any referrals to a consulting specialist. The emergency department will also refer you to a specialist when appropriate. This referral assures that you have the opportunity for follow-up care with a specialist. All of these measure are taken in an effort to provide you with optimal care, which includes your follow-up. Under all circumstances we always encourage you to contact your private physician who remains a resource for coordinating your care. When calling for follow-up care, please make the office aware that this follow-up is from your recent emergency room visit. If for any reason you are refused follow-up, please contact the [facility] Emergency Department at and asked to speak to the emergency department charge nurse. [facility] [address] [place] [id number] [facility] [address] [place] [id number] Take medications as prescribed Follow up with primary care provider Return to ED as needed as discussed Sepsis Event Note - Evaluation Sepsis Screening Result: No Definite Risk - Focused Exam Vital Signs: Vital Signs Temp Pulse Resp BP Pulse Ox 08/28/19 17:50 97.3 F 110 H 20 147/84 H 98 Date Exam was Performed: 08/28/19 Time Exam was Performed: 21:15 - My Orders Last 24 Hours: My Active Orders 08/28/19 18:17 Sodium Chloride 0.9% [Saline Flush] 10 ml FLUSH ASDIRECTED PRN Sodium Chloride 0.9% [Saline Flush] 2.5 ml FLUSH ASDIRECTED PRN Blood Culture x2 Reflex Set [OM.PC] Stat Saline Lock Insert [OM.PC] Stat 08/28/19 18:50 CULTURE BLOOD [BC] Stat 08/28/19 19:01 CULTURE BLOOD [BC] Stat 08/28/19 19:15 Sodium Chloride 0.9% [Normal Saline] 500 ml IV .BOLUS - Assessment/Plan Last 24 Hours: My Active Orders 08/28/19 18:17 Sodium Chloride 0.9% [Saline Flush] 10 ml FLUSH ASDIRECTED PRN Sodium Chloride 0.9% [Saline Flush] 2.5 ml FLUSH ASDIRECTED PRN Blood Culture x2 Reflex Set [OM.PC] Stat Saline Lock Insert [OM.PC] Stat 08/28/19 18:50 CULTURE BLOOD [BC] Stat 08/28/19 19:01 CULTURE BLOOD [BC] Stat 08/28/19 19:15 Sodium Chloride 0.9% [Normal Saline] 500 ml IV .BOLUS
[2019-08-28] MEDS ORDERED: Sodium Chloride 0.9% 10 ML Syringe FLUSH PRN (18:17)
[2019-08-28] MEDS ORDERED: Sodium Chloride 0.9% 2.5 ML Syringe FLUSH PRN (18:17)
[2019-08-28] MEDS ORDERED: Sodium Chloride 0.9% 1,000 ML IV ONE (18:17)
--- NOTE | 2019-08-28 18:37 | CR ---
Chest: 2 views of the chest were obtained. Comparison: Prior chest x-ray of 08/25/18. Heart is enlarged. This is more prominent than on previous exam. Pulmonary vessels are also slightly more prominent. Findings are felt compatible with early CHF. Bony structures appear within normal limits. Impression: 1. Findings suspicious for early CHF. Echocardiogram should be considered to evaluate the heart. Diagnostic code #3 Study was dictated in [place] Standard Time
[2019-08-28] MEDS ORDERED: Sodium Chloride 0.9% 500 ML IV SCH (19:15)
[2019-08-28 19:30] LABS: BLOOD UREA NITROGEN,BUN 9 mg/dL (7.0-18.0); CARBON DIOXIDE,CO2 23.5 mmol/L (21.0-32.0); CHLORIDE,CL 106 mmol/L (98-107); GLUCOSE RANDOM 99 mg/dL (74-106); SODIUM,NA 142 mmol/L (136-145)
[2019-08-28] MEDS ORDERED: cefTRIAXone 1 GM Vial IM ONE (20:03)
[2019-08-28] MEDS ORDERED: cefTRIAXone 1 GM in Premix Bag 1 BAG IV ONE (20:13)
== END 2019-08-28 21:15 | disposition home or self-care (01) ==
LOC: MW.ED 16:58
DX: J18.9 Pneumonia, unspecified organism (principal); E66.9 Obesity, unspecified; F17.210 Nicotine dependence, cigarettes, uncomplicated; Z68.32 Body mass index [BMI] 32.0-32.9, adult; Z88.6 Allergy status to analgesic agent; Z88.1 Allergy status to other antibiotic agents; Z88.5 Allergy status to narcotic agent; Z88.2 Allergy status to sulfonamides; Z79.899 Other long term (current) drug therapy
CPT/HCPCS: 36415; 71046; 80053; 83605; 83880; 85025; 87040; 87804; 96361; 96365; 99285; J0696; J7040

== ENCOUNTER 2019-10-25 21:31 | Emergency (ER) | payer OTHER ==
[2019-10-25] MEDS ORDERED: Albuterol/Ipratropium 3.0-0.5 MG/3 ML Neb Soln NEB ONE (21:52)
--- NOTE | 2019-10-25 21:58 | EDM.PDOC ---
ED HPI GENERAL MEDICAL PROBLEM - General Chief Complaint: Respiratory Problem Stated Complaint: SHORTNESS OF BREATH Time Seen by Provider: 10/25/19 21:38 Source of Information: Reports: Patient History Limitations: Reports: No Limitations - History of Present Illness INITIAL COMMENTS - FREE TEXT/NARRATIVE: HISTORY OF PRESENT ILLNESS: Patient is a 44-year-old female who presents with dyspnea and chest pain which started approximately 6 PM this evening. Patient states that she has had pneumonia 4 times this year and is concerned that she has another episode. Patient has right-sided chest pain which radiates to her right shoulder and back. She rates the pain as 2 out of 10 in severity and describes this chest wall tightness with occasional sharp pain. Denies any abdominal pain or rash. Denies any fevers chills or recent cough although she does states she has a runny nose. Patient is a smoker and smoked for 16 years approximately half a pack per day. She has no formal diagnosis of COPD but is on inhaler. Denies any history of asthma. Denies any leg swelling, recent travel, recent surgeries or history of thromboembolic disease. No family history of CAD. REVIEW OF SYSTEMS: Other than the symptoms associated with the present events, the following is reported with regard to recent health: General: (-) fever. HENT: (+) congestion. Respiratory: (-) cough. Cardiovascular: (+) chest pain. GI: (-) abdominal pain. : (-) urinary complaints. Musculoskeletal: (-) other aches or pains. Endocrine: (-) generalized weakness. Neurological: (-) localized weakness. Skin: (-) rash PAST MEDICAL HISTORY: reviewed as per nursing notes SOCIAL HISTORY: reviewed as per nursing notes, MEDICATIONS: Per nurse's note ALLERGIES: Per nurse's note, reviewed by me PHYSICAL EXAMINATION: GENERALIZED APPEARANCE: well developed, well nourished in no distress VITAL SIGNS: Per nurse's note, reviewed by me SKIN: Warm, dry; (-) cyanosis; (-) rash. HEAD: (-) scalp swelling, (-) tenderness. EYES: (-) conjunctival pallor, (-) scleral icterus. ENMT: (-) stridor; mucous membranes moist. NECK: (-) tenderness, (-) stiffness, CHEST AND RESPIRATORY: (-) rales, (-) rhonchi, (+)expiratory wheezes; breath sounds equal bilaterally. reproducible chest wall tenderness. no crepitus HEART AND CARDIOVASCULAR: tachycardic, regular rhythm (-) murmur, (-) gallop. ABDOMEN AND GI: Soft; (-) tenderness, (-) guarding, (-) rebound, (-) palpable masses, EXTREMITIES: (-) deformity, (-) edema. NEURO AND PSYCH: Alert. Cranial nerves grossly intact; strength symmetric. gait steady DIAGNOSTICS: EKG: st at 116 bpm. nml axis. no [address] elevation. CXR: as read by radiologist, reviewed by myself Labs reviewed EMERGENCY DEPARTMENT COURSE AND TREATMENT: Patient's condition remained stable during Emergency Department evaluation. Given nebs with improvement. CXR unremarkable but D-dimer elevated, CT ordered and findings noted. BNP 184. COVID -19 testing ordered as she has not had this performed during any prior episodes and due to findings on CT. Concern for pneumonia. Pt states she is not allergic to Azithromycin and steroids have worked well in the past. Also concern for possible underlying COPD. Based on history, physical exam, and diagnostic evaluation, the patient appears to have symptoms consistent with a pneumonia. The vital signs show normal oxygen saturation on room air, with a normal respiratory pattern, and clear lung vick on reevaluation. This is most likely bacterial in etiology. The patient appears to be in no distress, appears well- hydrated and is ambulating in the ED without difficulty. The patient was given discharge precautions with instructions to return for difficulty breathing, not tolerating oral food or fluids, any respiratory distress, or new symptoms. 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 Return immediately with any new or worsening symptoms. Regarding reproducible chest wall pain: Pt with low HEART score and unremarkable EKG troponin. Based on history, physical exam, and diagnostic evaluation, the patient appears to have symptoms consistent with low risk chest pain. The physical exam was unremarkable including normal chest and respiratory exam. Laboratory testing was performed. I do not believe the symptoms are related to acute ischemic chest pain. I also do not believe this is a vascular catastrophe such as an aortic dissection or an acute rupture of an abdominal aortic aneurysm. The patient is low risk for acute thromboembolic phenomena. The patient will be discharged to follow-up with their primary care physician in the next 24-48 hours or return here if unable to make an appointment with formerly [facility] primary care physician. Patient was advised of our evaluation and instructed to seek medical attention immediately if symptoms change, worsen, or new symptoms develop. PLAN AND FOLLOW-UP: Patient received written and verbal instructions regarding this condition. Return to ED immediately with any new or worsening symptoms. Follow up to be arranged by patient with pcp in 1-2 days for further evaluation. Given discharge precautions. Patient expressed verbal understanding. Chest Pain Score (Numeric/FACES): 3 - Related Data Allergies Allergy/AdvReac Type Severity Reaction Status Date / Time acetaminophen [From Percocet] Allergy Vomiting Verified 10/25/19 21:43 ciprofloxacin [From Cipro] Allergy Vomiting Verified 10/25/19 21:43 ciprofloxacin HCl Allergy Vomiting Verified 10/25/19 21:43 [From Cipro] erythromycin base Allergy Vomiting Verified 10/25/19 21:43 [Erythromycin Base] hydrocodone [From Vicodin] Allergy Vomiting Verified 10/25/19 21:43 oxycodone [From Percocet] Allergy Vomiting Verified 10/25/19 21:43 Sulfa (Sulfonamide Allergy Vomiting Verified 10/25/19 21:43 Antibiotics) Home Meds: Home Meds Albuterol Sulfate [Albuterol Sulfate Hfa] 8.5 gm IH ASDIRECTED 09/27/18 [History ] Azithromycin 250 mg PO DAILY #6 tablet 10/26/19 [Rx] predniSONE [Prednisone] 50 mg PO DAILY #5 tablet 10/26/19 [Rx] Past Medical History HEENT History: Reports: None Cardiovascular History: Reports: None Respiratory History: Reports: None Gastrointestinal History: Reports: GERD Genitourinary History: Reports: None 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: Musculoskeletal History: Reports: None Neurological History: Reports: None Psychiatric History: Reports: None Endocrine/Metabolic History: Reports: Obesity/BMI 30+ Hematologic History: Reports: None Immunologic History: Reports: None Oncologic (Cancer) History: Reports: None Dermatologic History: Reports: None - Infectious Disease History Infectious Disease History: Reports: None - Past Surgical History Head Surgeries/Procedures: Reports: None HEENT Surgical History: Reports: Tonsillectomy Female Surgical History: Reports: Endometrial Ablation, Tubal Ligation Social & Family History - Family History Family Medical History: Noncontributory - Tobacco Use Smoking Status *Q: Current Every Day Smoker Years of Tobacco use: 18 Packs/Tins Daily: 0.5 - Caffeine Use Caffeine Use: Reports: None - Recreational Drug Use Recreational Drug Use: No ED ROS GENERAL - Review of Systems Review Of Systems: See Below (see dictation) ED EXAM, GENERAL - Physical Exam Exam: See Below (see dictation) Course - Vital Signs Last Recorded V/S: Last Vital Signs Temp 97.7 F 10/25/19 21:40 Pulse 114 H 10/26/19 00:00 Resp 18 10/26/19 00:00 BP 138/77 10/26/19 00:00 Pulse Ox 97 10/26/19 00:00 - Orders/Labs/Meds Orders: Active Orders 24 hr Category Date Time Status EKG Documentation Completion [RC] STAT Care 10/25/19 21:52 Inactive EKG Documentation Completion [RC] STAT Care 10/25/19 21:53 Active RT Aerosol Therapy [RC] ASDIRECTED Care 10/25/19 21:53 Active CORONAVIRUS COVID-19 PCR PHL Stat Lab 10/26/19 00:21 Ordered CULTURE BLOOD [BC] Stat Lab 10/25/19 22:03 Received CULTURE BLOOD [BC] Stat Lab 10/25/19 22:11 Received Blood Culture x2 Reflex Set [OM.PC] Stat Oth 10/25/19 21:52 Ordered Saline Lock Insert [OM.PC] Stat Oth 10/25/19 21:55 Ordered Labs: Laboratory Tests 10/25/19 10/25/19 10/25/19 Range/Units 22:03 22:03 22:03 WBC 16.19 H (4.0-11.0) K/uL RBC 4.59 (4.30-5.90) M/uL Hgb 12.1 (12.0-16.0) g/dL Hct 38.3 (36.0-46.0) % MCV 83.4 (80.0-98.0) fL MCH 26.4 L (27.0-32.0) pg MCHC 31.6 (31.0-37.0) g/dL RDW Std Deviation 47.3 (28.0-62.0) fl RDW Coeff of Aniket 16 H (11.0-15.0) % Plt Count 270 (150-400) K/uL MPV 8.80 (7.40-12.00) fL Neut % (Auto) 85.3 H (48.0-80.0) % Lymph % (Auto) 6.9 L (16.0-40.0) % [place] % (Auto) 5.6 (0.0-15.0) % Eos % (Auto) 1.8 (0.0-7.0) % Baso % (Auto) 0.4 (0.0-1.5) % Neut # (Auto) 13.8 H (1.4-5.7) K/uL Lymph # (Auto) 1.1 (0.6-2.4) K/uL [place] # (Auto) 0.9 H (0.0-0.8) K/uL Eos # (Auto) 0.3 (0.0-0.7) K/uL Baso # (Auto) 0.1 (0.0-0.1) K/uL Nucleated RBC % 0.0 /100WBC Nucleated RBCs # 0 K/uL D-Dimer, Quantitative 6.49 H (0.0-0.50) mg/L FEU Lactate 1.8 (0.20-2.00) mmol/L Sodium (136-145) mmol/L Potassium (3.5-5.1) mmol/L Chloride (98-107) mmol/L Carbon Dioxide (21.0-32.0) mmol/L BUN (7.0-18.0) mg/dL Creatinine (0.6-1.0) mg/dL Est Cr Clr Drug Dosing mL/min Estimated GFR (MDRD) ml/min Glucose (74-106) mg/dL Calcium (8.5-10.1) mg/dL Total Bilirubin (0.2-1.0) mg/dL AST (15-37) IU/L ALT (14-63) IU/L Alkaline Phosphatase (46-116) U/L Troponin I (0.000-0.056) ng/mL B-Natriuretic Peptide (<100) PG/ML Total Protein (6.4-8.2) g/dL Albumin (3.4-5.0) g/dL Globulin (2.6-4.0) g/dL Albumin/Globulin Ratio (0.9-1.6) 10/25/19 10/25/19 Range/Units 22:03 22:03 WBC (4.0-11.0) K/uL RBC (4.30-5.90) M/uL Hgb (12.0-16.0) g/dL Hct (36.0-46.0) % MCV (80.0-98.0) fL MCH (27.0-32.0) pg MCHC (31.0-37.0) g/dL RDW Std Deviation (28.0-62.0) fl RDW Coeff of Aniket (11.0-15.0) % Plt Count (150-400) K/uL MPV (7.40-12.00) fL Neut % (Auto) (48.0-80.0) % Lymph % (Auto) (16.0-40.0) % [place] % (Auto) (0.0-15.0) % Eos % (Auto) (0.0-7.0) % Baso % (Auto) (0.0-1.5) % Neut # (Auto) (1.4-5.7) K/uL Lymph # (Auto) (0.6-2.4) K/uL [place] # (Auto) (0.0-0.8) K/uL Eos # (Auto) (0.0-0.7) K/uL Baso # (Auto) (0.0-0.1) K/uL Nucleated RBC % /100WBC Nucleated RBCs # K/uL D-Dimer, Quantitative (0.0-0.50) mg/L FEU Lactate (0.20-2.00) mmol/L Sodium 140 (136-145) mmol/L Potassium 4.1 (3.5-5.1) mmol/L Chloride 104 (98-107) mmol/L Carbon Dioxide 25.2 (21.0-32.0) mmol/L BUN 11 (7.0-18.0) mg/dL Creatinine 0.9 (0.6-1.0) mg/dL Est Cr Clr Drug Dosing 73.27 mL/min Estimated GFR (MDRD) > 60.0 ml/min Glucose 116 H (74-106) mg/dL Calcium 8.1 L (8.5-10.1) mg/dL Total Bilirubin 1.1 H (0.2-1.0) mg/dL AST 15 (15-37) IU/L ALT 16 (14-63) IU/L Alkaline Phosphatase 87 (46-116) U/L Troponin I < 0.050 (0.000-0.056) ng/mL B-Natriuretic Peptide 184 H (<100) PG/ML Total Protein 7.1 (6.4-8.2) g/dL Albumin 3.5 (3.4-5.0) g/dL Globulin 3.6 (2.6-4.0) g/dL Albumin/Globulin Ratio 1.0 (0.9-1.6) Meds: Medications Discontinued Medications Generic Name Dose Route Start Last Admin Trade Name Freq PRN Reason Stop Dose Admin Albuterol/Ipratropium 3 ml 10/25/19 21:52 10/25/19 22:15 Duoneb 3.0-0.5 Mg/3 Ml NEB 10/25/19 21:53 3 ml ONETIME ONE Administration Iopamidol 100 ml 10/25/19 23:41 10/25/19 23:43 Isovue Multipack-370 (76%) IVPUSH 10/25/19 23:42 100 ml ONETIME ONE Administration Departure - Departure Time of Disposition: 00:23 Disposition: Home, Self-Care 01 Condition: Good Clinical Impression: Pneumonia, Chest wall pain, Shortness of breath - Discharge Information *PRESCRIPTION DRUG MONITORING PROGRAM REVIEWED*: Not Applicable *COPY OF PRESCRIPTION DRUG MONITORING REPORT IN PATIENT HITESH: Not Applicable Prescriptions: Azithromycin 250 mg PO DAILY #6 tablet predniSONE [Prednisone] 50 mg PO DAILY #5 tablet Instructions: Steps to Quit Smoking, [id number], Community-Acquired Pneumonia , Adult, Chest Wall Pain, [id number] Referrals: PCP,Chiquita [Primary Care Provider] - Ruma Rai [Ordering Only Provider] - 1 Day Forms: ED Department Discharge Additional Instructions: The following information is given to patients seen in the emergency department who are being discharged to home. This information is to outline your options for follow-up care. We provide all patients seen in our emergency department with a follow-up referral. The need for follow-up, as well as the timing and circumstances, are variable depending upon the specifics of your emergency department visit. If you don't have a primary care physician on staff, we will provide you with a referral. We always advise you to contact your personal physician following an emergency department visit to inform them of the circumstance of the visit and for follow-up with them and/or the need for any referrals to a consulting specialist. The emergency department will also refer you to a specialist when appropriate. This referral assures that you have the opportunity for follow-up care with a specialist. All of these measure are taken in an effort to provide you with optimal care, which includes your follow-up. Under all circumstances we always encourage you to contact your private physician who remains a resource for coordinating your care. When calling for follow-up care, please make the office aware that this follow-up is from your recent emergency room visit. If for any reason you are refused follow-up, please contact the [facility] Emergency Department at and asked to speak to the emergency department charge nurse. Sepsis Event Note - Evaluation Sepsis Screening Result: No Definite Risk - Focused Exam Vital Signs: Vital Signs Temp Pulse Resp BP Pulse Ox 10/26/19 00:00 114 H 18 138/77 97 10/25/19 21:40 97.7 F 117 H 22 H 135/87 98 Date Exam was Performed: 10/26/19 Time Exam was Performed: 00:28 - My Orders Last 24 Hours: My Active Orders 10/25/19 21:52 EKG Documentation Completion [RC] STAT Blood Culture x2 Reflex Set [OM.PC] Stat 10/25/19 21:53 EKG Documentation Completion [RC] STAT RT Aerosol Therapy [RC] ASDIRECTED 10/25/19 21:55 Saline Lock Insert [OM.PC] Stat 10/25/19 22:03 CULTURE BLOOD [BC] Stat 10/25/19 22:11 CULTURE BLOOD [BC] Stat 10/26/19 00:21 CORONAVIRUS COVID-19 PCR PHL Stat - Assessment/Plan Last 24 Hours: My Active Orders 10/25/19 21:52 EKG Documentation Completion [RC] STAT Blood Culture x2 Reflex Set [OM.PC] Stat 10/25/19 21:53 EKG Documentation Completion [RC] STAT RT Aerosol Therapy [RC] ASDIRECTED 10/25/19 21:55 Saline Lock Insert [OM.PC] Stat 10/25/19 22:03 CULTURE BLOOD [BC] Stat 10/25/19 22:11 CULTURE BLOOD [BC] Stat 10/26/19 00:21 CORONAVIRUS COVID-19 PCR PHL Stat
--- NOTE | 2019-10-25 22:31 | CR ---
Chest: Portable view of the chest was obtained. Comparison: Prior chest x-ray of 08/28/19. Heart is felt to be slightly enlarged. Central pulmonary vessels are slightly increased which appears stable. No acute parenchymal change is otherwise seen. Bony structures are grossly intact. Impression: 1. Findings as noted above which are unchanged from previous chest x-ray and presumably are chronic. 2. Nothing acute is otherwise seen. Diagnostic code #3 Study was dictated in MDT
[2019-10-25 22:42] LABS: BLOOD UREA NITROGEN,BUN 11 mg/dL (7.0-18.0); CARBON DIOXIDE,CO2 25.2 mmol/L (21.0-32.0); CHLORIDE,CL 104 mmol/L (98-107); GLUCOSE RANDOM 116 mg/dL (74-106); POTASSIUM,K 4.1 mmol/L (3.5-5.1); SODIUM,NA 140 mmol/L (136-145)
[2019-10-25] MEDS ORDERED: Iopamidol 755 MG/ML 200 ML Multipack Bottle IVPUSH ONE (23:41)
--- NOTE | 2019-10-26 00:14 | CT ---
INDICATION: Shortness of breath, chest pain, elevated D-dimer, history of pneumonia COMPARISON: None TECHNIQUE: Contrast enhanced axial CT imaging through the chest, optimized for assessment of the pulmonary arterial tree. 90 mL Isovue 370 contrast agent was administered intravenously. Sagittal and coronal reconstructions are provided. FINDINGS: There is diffuse bilateral ground-glass airspace opacity with interstitial thickening more pronounced in the lung bases, consistent with pulmonary edema. Scattered small nodular opacities in the peripheral upper lungs bilaterally, worse on the left, likely represent superimposed infectious infiltrates. There are small bilateral pleural effusions. There is mediastinal and bilateral hilar lymphadenopathy. There is adequate opacification of the pulmonary arterial tree without evidence of thromboembolism. The main pulmonary artery is nondilated. The heart is non enlarged. There is no pericardial effusion. There is normal caliber of the thoracic aorta. The thoracic osseous structures are unremarkable. No significant abnormality is demonstrated in the visualized upper abdomen. IMPRESSION: 1. Diffuse pulmonary edema with small bilateral pleural effusions. Correlate for congestive heart failure. 2. Bilateral peripheral upper lobe nodular opacities likely represent superimposed infectious infiltrates. 3. Mediastinal and bilateral hilar lymphadenopathy, presumably reactive. 4. No evidence of pulmonary thromboembolism. Please note that all CT scans at this facility use dose modulation, iterative reconstruction, and/or weight-based dosing when appropriate to reduce radiation dose to as low as reasonably achievable. Dictated by Paulino Sky MD @ Oct 25 2019 11:51PM Signed by Dr. Paulino Sky @ Oct 26 2019 12:12AM
== END 2019-10-26 00:40 | disposition home or self-care (01) ==
LOC: MW.ED 21:31
DX: J18.9 Pneumonia, unspecified organism (principal); F17.210 Nicotine dependence, cigarettes, uncomplicated; Z68.32 Body mass index [BMI] 32.0-32.9, adult; E66.9 Obesity, unspecified; Z88.6 Allergy status to analgesic agent; Z88.1 Allergy status to other antibiotic agents; Z88.5 Allergy status to narcotic agent; Z88.2 Allergy status to sulfonamides
CPT/HCPCS: 36415; 71045; 71275; 80053; 83605; 83880; 84484; 85025; 85379; 87040; 87635; 93005; 94640; 99285; Q9967; 99284; J7620-GY; U0002

== ENCOUNTER 2020-07-15 05:49 | Emergency (ER) | payer OTHER ==
[2020-07-15] MEDS ORDERED: Sodium Chloride 0.9% 2.5 ML Syringe FLUSH PRN (06:12)
[2020-07-15] MEDS ORDERED: Sodium Chloride 0.9% 10 ML Syringe FLUSH PRN (06:12)
--- NOTE | 2020-07-15 06:13 | EDM.PDOC ---
<AelxisBal Austin - Last Filed: 07/15/20 09:17> ED HPI GENERAL MEDICAL PROBLEM - General Chief Complaint: Chest Pain Stated Complaint: CHEST PAIN Time Seen by Provider: 07/15/20 06:03 - Related Data Allergies Allergy/AdvReac Type Severity Reaction Status Date / Time acetaminophen [From Percocet] Allergy Vomiting Verified 07/15/20 06:00 ciprofloxacin [From Cipro] Allergy Vomiting Verified 07/15/20 06:00 ciprofloxacin HCl Allergy Vomiting Verified 07/15/20 06:00 [From Cipro] erythromycin base Allergy Vomiting Verified 07/15/20 06:00 [Erythromycin Base] hydrocodone [From Vicodin] Allergy Vomiting Verified 07/15/20 06:00 oxycodone [From Percocet] Allergy Vomiting Verified 07/15/20 06:00 Sulfa (Sulfonamide Allergy Vomiting Verified 07/15/20 06:00 Antibiotics) Home Meds: Home Meds Albuterol [Ventolin HFA] 1 puff INH ASDIRECTED PRN 07/15/20 [History] Aspirin 81 mg PO DAILY 07/15/20 [History] Fluticasone Propion/Salmeterol [Advair 250-50 Diskus] 1 puff INH BID 07/15/20 [History] Pantoprazole Sodium [Protonix] 40 mg PO DAILY 07/15/20 [History] Warfarin [Coumadin] 3 mg PO ASDIRECTED 07/15/20 [History] buPROPion HCL [Wellbutrin SR] 150 mg PO BID 07/15/20 [History] nitrofurantoin macrocrystaL [Nitrofurantoin] 100 mg PO BID 07/15/20 [History] Departure - Departure Time of Disposition: 09:17 Disposition: Home, Self-Care 01 Condition: Good Clinical Impression: Chest pain - Discharge Information *PRESCRIPTION DRUG MONITORING PROGRAM REVIEWED*: Not Applicable *COPY OF PRESCRIPTION DRUG MONITORING REPORT IN PATIENT HITESH: Not Applicable Instructions: Nonspecific Chest Pain, Adult, [id number], Angina, [id number] Referrals: PCP,None [Primary Care Provider] - Forms: ED Department Discharge Additional Instructions: The following information is given to patients seen in the emergency department who are being discharged to home. This information is to outline your options for follow-up care. We provide all patients seen in our emergency department with a follow-up referral. The need for follow-up, as well as the timing and circumstances, are variable depending upon the specifics of your emergency department visit. If you don't have a primary care physician on staff, we will provide you with a referral. We always advise you to contact your personal physician following an emergency department visit to inform them of the circumstance of the visit and for follow-up with them and/or the need for any referrals to a consulting specialist. The emergency department will also refer you to a specialist when appropriate. This referral assures that you have the opportunity for follow-up care with a specialist. All of these measure are taken in an effort to provide you with optimal care, which includes your follow-up. Under all circumstances we always encourage you to contact your private physic kamilah who remains a resource for coordinating your care. When calling for follow- up care, please make the office aware that this follow-up is from your recent emergency room visit. If for any reason you are refused follow-up, please contact the [facility] Emergency Department at and asked to speak to the emergency department charge nurse. Please follow up with your primary care physician. If you do not have a primary care physician, see below: [facility] [address] [place] [id number] [facility] [address] [place] [id number] Please follow-up with your creative arts therapist. If you continue to have chest pain or other concerning symptoms please return to the ED. <Martín Dennis - Last Filed: 07/15/20 19:34> ED HPI GENERAL MEDICAL PROBLEM - History of Present Illness INITIAL COMMENTS - FREE TEXT/NARRATIVE: HISTORY AND PHYSICAL: History of present illness: This is a 44-year-old female with a history significant for mechanical mitral valve replacement that was performed in April 2020 in [facility] who presents ER today complaining of sharp midsternal chest pain that awoke her from sleep today at around 4 AM. Patient reports that the pain is sharp in nature and increases with deep inspiration and when she attempts to cough. Patient denies any shortness of breath, nausea, vomiting, pain rating down her arms jaw or back, diaphoresis. She denies any exertional component with the pain. Patient denies any recent fevers, shakes, chills, nausea, vomiting, diarrhea, dysuria, frequency, urgency, abdominal pain. Patient denies any history of CAD or AK in the past. Patient reports she is currently on warfarin for her recent valve replacement. Patient denies any calf tenderness or lower extremity edema. Positive for tobacco use, negative alcohol or drugs. Review of systems: As per history of present illness and below otherwise all systems reviewed and negative. Past medical history: As per history of present illness and as reviewed below otherwise noncontributory. Surgical history: As per history of present illness and as reviewed below otherwise noncontributory. Social history: No reported history of drug or alcohol abuse. Family history: As per history of present illness and as reviewed below otherwise noncontributory. Physical exam: Constitutional: Patient is oriented to person, place, and time. Appears well- developed and well-nourished. No distress. HEENT: Moist mucous membranes Head: Normocephalic and atraumatic Eyes: Right eye exhibits no discharge. Left eye exhibits no discharge. No scleral icterus Neck: Normal range of motion. No tracheal deviation present. Cardiovascular: Normal rate and regular rhythm. Pulmonary: Effort normal, no respiratory distress. Abdominal: No distention Musculoskeletal: Normal range of motion Neurologic: Alert and oriented to person, place and time. Skin: Novice, warm and dry. Psychiatric: Normal mood and affect. Behavior is normal. Judgment and thought content normal. Nursing note and vital signs have been reviewed Patient's ER physical exam is significant for reproducible tenderness to palpation to her midsternal region. Patient reports pain increases when she takes a deep inspiration here in the ED. Patient also reports pain increases when she coughs in the ED. This patient was seen and evaluated during the 2019 SARS-CoV-2 novel coronavirus pandemic period. Community viral transmission is ongoing at time of this encounter and the emergency department is operating under pandemic response procedures. Diagnostics: CBC, CMP, troponin, INR, chest x-ray, EKG EKG: As interpreted by ER physician: Sonny: Nonspecific ST-T wave abnormalities Normal axis No evidence of ST elevation AK Normal sinus rhythm heart rate of 95 Chest Xray: Normal cardiac silhouette No infiltrates or effusions identified. No PTX No evidence of acute bony fracture. As interpreted by ER MD: [employer]: Ultram 50 mg p.o. Assessment and plan: This is a 44-year-old female with history significant for mechanical mitral valve replacement in April 2020 and [facility] who presents ER today complaining of sharp midsternal chest pain that woke her from sleep around 4 AM. Pain appears to be reproducible with deep inspiration as well as with coughing in the ED. patient's presentation in the ER today does not appear to be highly consistent with acute coronary syndrome. Patient will have a troponin level drawn here in the ED as well as an EKG. If patient's initial troponin level is negative, I plan on ordering a 2-hour troponin level on her. If patient's to our troponin level is negative, given her low risk status, I feel patient will be stable for discharge to home with outpatient follow-up with her creative arts therapist. Definitive disposition and diagnosis as appropriate pending reevaluation and review of above. 7:34 PM July 15, 2020: Phone call follow-up made to assure continuity of care. Patient reports that she feels better but is still having some pain with inspiration. Patient reports that she has made follow-up appointment with her doctor. chest pain Pain Score (Numeric/FACES): 4 Past Medical History HEENT History: Reports: None Cardiovascular History: Reports: None Other Cardiovascular History: Valve Problem Respiratory History: Reports: None Gastrointestinal History: Reports: GERD Genitourinary History: Reports: None SANITATION LABORER History: Reports: Musculoskeletal History: Reports: None Neurological History: Reports: None Psychiatric History: Reports: None Endocrine/Metabolic History: Reports: None, Obesity/BMI 30+ Insulin Pump Model and Internal Audit Consultant: None Hematologic History: Reports: None Immunologic History: Reports: None Oncologic (Cancer) History: Reports: None Dermatologic History: Reports: None - Infectious Disease History Infectious Disease History: Reports: None - Past Surgical History Head Surgeries/Procedures: Reports: None HEENT Surgical History: Reports: Tonsillectomy Cardiovascular Surgical History: Reports: Other (See Below) Other Cardiovascular Surgeries/Procedures: Mitral Valve Replacement Female Surgical History: Reports: Endometrial Ablation, Tubal Ligation Social & Family History - Family History Family Medical History: No Pertinent Family History - Tobacco Use Tobacco Use Status *Q: Current Every Day Tobacco User Years of Tobacco use: 19 Packs/Tins Daily: 0.5 - Caffeine Use Caffeine Use: Reports: Soda - Recreational Drug Use Recreational Drug Use: No ED ROS GENERAL - Review of Systems Review Of Systems: See Below ED EXAM, GENERAL - Physical Exam Exam: See Below #1 Interpretation EKG Interpretation Comments: EKG: As interpreted by ER physician: Sonny: Nonspecific ST-T wave abnormalities Normal axis No evidence of ST elevation AK Normal sinus rhythm heart rate of 95 Course - Vital Signs Last Recorded V/S: Last Vital Signs Temp 98.7 F 07/15/20 09:30 Pulse 97 07/15/20 09:28 Resp 10 L 07/15/20 09:28 BP 147/87 H 07/15/20 09:28 Pulse Ox 100 07/15/20 09:28 - Orders/Labs/Meds Orders: Active Orders 24 hr Category Date Time Status Saline Lock Insert [OM.PC] Stat Oth 07/15/20 06:12 Ordered Labs: Laboratory Tests 07/15/20 07/15/20 07/15/20 Range/Units 05:55 05:55 05:55 WBC 12.42 H (4.0-11.0) K/uL RBC 5.10 (4.30-5.90) M/uL Hgb 13.9 (12.0-16.0) g/dL Hct 42.9 (36.0-46.0) % MCV 84.1 (80.0-98.0) fL MCH 27.3 (27.0-32.0) pg MCHC 32.4 (31.0-37.0) g/dL RDW Std Deviation 42.9 (28.0-62.0) fl RDW Coeff of Aniket 14 (11.0-15.0) % Plt Count 375 (150-400) K/uL MPV 9.10 (7.40-12.00) fL Neut % (Auto) 77.5 (48.0-80.0) % Lymph % (Auto) 11.8 L (16.0-40.0) % Day % (Auto) 6.9 (0.0-15.0) % Eos % (Auto) 3.1 (0.0-7.0) % Baso % (Auto) 0.7 (0.0-1.5) % Neut # (Auto) 9.6 H (1.4-5.7) K/uL Lymph # (Auto) 1.5 (0.6-2.4) K/uL Day # (Auto) 0.9 H (0.0-0.8) K/uL Eos # (Auto) 0.4 (0.0-0.7) K/uL Baso # (Auto) 0.1 (0.0-0.1) K/uL Nucleated RBC % 0.0 /100WBC Nucleated RBCs # 0 K/uL INR 3.45 D-Dimer, Quantitative 0.44 (0.0-0.50) mg/L FEU Sodium 137 (136-145) mmol/L Potassium 4.2 (3.5-5.1) mmol/L Chloride 103 (98-107) mmol/L Carbon Dioxide 26.3 (21.0-32.0) mmol/L BUN 12 (7.0-18.0) mg/dL Creatinine 1.0 (0.6-1.0) mg/dL Est Cr Clr Drug Dosing 65.95 mL/min Estimated GFR (MDRD) > 60.0 ml/min Glucose 124 H (74-106) mg/dL Calcium 8.9 (8.5-10.1) mg/dL Total Bilirubin 0.9 (0.2-1.0) mg/dL AST 34 (15-37) IU/L ALT 14 (14-63) IU/L Alkaline Phosphatase 104 (46-116) U/L Troponin I < 0.050 (0.000-0.056) ng/mL Total Protein 8.0 (6.4-8.2) g/dL Albumin 3.6 (3.4-5.0) g/dL Globulin 4.4 H (2.6-4.0) g/dL Albumin/Globulin Ratio 0.8 L (0.9-1.6) 07/15/20 Range/Units 08:10 WBC (4.0-11.0) K/uL RBC (4.30-5.90) M/uL Hgb (12.0-16.0) g/dL Hct (36.0-46.0) % MCV (80.0-98.0) fL MCH (27.0-32.0) pg MCHC (31.0-37.0) g/dL RDW Std Deviation (28.0-62.0) fl RDW Coeff of Aniket (11.0-15.0) % Plt Count (150-400) K/uL MPV (7.40-12.00) fL Neut % (Auto) (48.0-80.0) % Lymph % (Auto) (16.0-40.0) % Day % (Auto) (0.0-15.0) % Eos % (Auto) (0.0-7.0) % Baso % (Auto) (0.0-1.5) % Neut # (Auto) (1.4-5.7) K/uL Lymph # (Auto) (0.6-2.4) K/uL Day # (Auto) (0.0-0.8) K/uL Eos # (Auto) (0.0-0.7) K/uL Baso # (Auto) (0.0-0.1) K/uL Nucleated RBC % /100WBC Nucleated RBCs # K/uL INR D-Dimer, Quantitative (0.0-0.50) mg/L FEU Sodium (136-145) mmol/L Potassium (3.5-5.1) mmol/L Chloride (98-107) mmol/L Carbon Dioxide (21.0-32.0) mmol/L BUN (7.0-18.0) mg/dL Creatinine (0.6-1.0) mg/dL Est Cr Clr Drug Dosing mL/min Estimated GFR (MDRD) ml/min Glucose (74-106) mg/dL Calcium (8.5-10.1) mg/dL Total Bilirubin (0.2-1.0) mg/dL AST (15-37) IU/L ALT (14-63) IU/L Alkaline Phosphatase (46-116) U/L Troponin I < 0.050 (0.000-0.056) ng/mL Total Protein (6.4-8.2) g/dL Albumin (3.4-5.0) g/dL Globulin (2.6-4.0) g/dL Albumin/Globulin Ratio (0.9-1.6) Meds: Medications Discontinued Medications Generic Name Dose Route Start Last Admin Trade Name Freq PRN Reason Stop Dose Admin Sodium Chloride 10 ml 07/15/20 06:12 Saline Flush FLUSH ASDIRECTED PRN Keep Vein Open Sodium Chloride 2.5 ml 07/15/20 06:12 Saline Flush FLUSH ASDIRECTED PRN Keep Vein Open Sepsis Event Note (ED) - Evaluation Sepsis Screening Result: No Definite Risk - Focused Exam Vital Signs: Vital Signs Temp Pulse Resp BP Pulse Ox 07/15/20 09:30 98.7 F 07/15/20 09:28 97 10 L 147/87 H 100 07/15/20 08:24 98 11 L 153/86 H 98 07/15/20 07:54 98 11 L 160/88 H 98 07/15/20 07:39 94 14 153/89 H 98 - My Orders Last 24 Hours: My Active Orders 07/15/20 06:12 Saline Lock Insert [OM.PC] Stat - Assessment/Plan Last 24 Hours: My Active Orders 07/15/20 06:12 Saline Lock Insert [OM.PC] Stat
--- NOTE | 2020-07-15 06:37 | CR ---
INDICATION: Chest pain COMPARISON: October 25, 2019 TECHNIQUE: Single-view chest radiograph FINDINGS: TUBES AND LINES: None. HEART AND MEDIASTINUM: Heart size normal. Ring structure overlying the precordium may represent of valve repair but there has been no median sternotomy. LUNGS AND PLEURAL SPACES: The lungs appear normal.The pleural spaces are unremarkable. OSSEOUS STRUCTURES: Age-appropriate appearance. No acute focal finding. IMPRESSION: No evidence of active pulmonary disease Dictated by Emanuel Conte MD @ Jul 15 2020 6:33AM Signed by Dr. Emanuel Conte @ Jul 15 2020 6:35AM
[2020-07-15 06:54] LABS: BLOOD UREA NITROGEN,BUN 12 mg/dL (7.0-18.0); CARBON DIOXIDE,CO2 26.3 mmol/L (21.0-32.0); CHLORIDE,CL 103 mmol/L (98-107); GLUCOSE RANDOM 124 mg/dL (74-106); POTASSIUM,K 4.2 mmol/L (3.5-5.1); SODIUM,NA 137 mmol/L (136-145)
== END 2020-07-15 09:35 | disposition home or self-care (01) ==
LOC: MW.ED 05:49
DX: R07.2 Precordial pain (principal); E66.9 Obesity, unspecified; Z68.34 Body mass index [BMI] 34.0-34.9, adult; Z88.6 Allergy status to analgesic agent; Z88.1 Allergy status to other antibiotic agents; Z88.5 Allergy status to narcotic agent; Z88.2 Allergy status to sulfonamides; Z79.82 Long term (current) use of aspirin; Z79.899 Other long term (current) drug therapy
CPT/HCPCS: 36415; 71045; 71045-26; 80053; 84484; 85025; 85379; 85610; 93005; 93010; 99284; 99285-25

== ENCOUNTER 2020-09-18 09:42 | Emergency (ER) | payer OTHER ==
[2020-09-18] MEDS ORDERED: Sodium Chloride 0.9% 10 ML Syringe FLUSH PRN (10:06)
[2020-09-18] MEDS ORDERED: Ondansetron 4 MG/2 ML SDV IVPUSH ONE (10:06)
[2020-09-18] MEDS ORDERED: Sodium Chloride 0.9% 2.5 ML Syringe FLUSH PRN (10:06)
[2020-09-18] MEDS ORDERED: Sodium Chloride 0.9% 1,000 ML IV ONE ×2 (10:06→11:33)
--- NOTE | 2020-09-18 10:13 | EDM.PDOC ---
ED HPI GENERAL MEDICAL PROBLEM - General Chief Complaint: Abdominal Pain Stated Complaint: PAIN RIGHT SIDE NAUSEA Time Seen by Provider: 09/18/20 10:10 Source of Information: Reports: Patient History Limitations: Reports: No Limitations - History of Present Illness INITIAL COMMENTS - FREE TEXT/NARRATIVE: HISTORY AND PHYSICAL: History of present illness: Patient is a 45-year-old female who presents to the emergency room with complaints of right-sided abdominal pain that wraps into her flank. She states she went to breakfast with some friends and started to. Shortly after she went to the bathroom and had a normal bowel movement, became nauseated, emesis x1 and felt diaphoretic. She describes her abdominal pain as sharp and coming in "waves". Upon arrival to the emergency room she states she continues to have the right-sided abdominal pain and nausea. Patient denies any fever, chills, headache, change in vision, syncope or near syncope. Denies any chest pain, back pain, shortness of breath or cough. Denies any diarrhea, constipation or dysuria. Has not noted any blood in urine or stool. Patient has been eating and drinking appropriately. Patient had a mitral valve (artificial valve) on May 10, 2020. Currently on Coumadin daily. Review of systems: As per history of present illness and below otherwise all systems reviewed and negative. Past medical history: As per history of present illness and as reviewed below otherwise noncontributory. Surgical history: As per history of present illness and as reviewed below otherwise noncontributory. Social history: See social history for further information Family history: As per history of present illness and as reviewed below otherwise noncontributory. Physical exam: General: Well developed and well nourished. Alert and orientated x 3. Nontoxic in appearance and in no acute distress. Vital signs are stable and have been reviewed by me. Nursing notes were reviewed. HEENT: Atraumatic, normocephalic, pupils equal and reactive bilaterally, negative for conjunctival pallor or scleral icterus, mucous membranes moist, TMs normal bilaterally, throat clear, neck supple, nontender, trachea midline. No drooling or trismus noted. No meningeal signs. No hot potato voice noted. Lungs: Clear to auscultation bilaterally. No wheezes, rales, or rhonchi. Chest nontender. Normal work of breathing, no accessory muscles used. Heart: S1S2, regular rate and rhythm without overt murmur, gallops, or rubs. No JVD. No peripheral edema Abdomen: Soft, nondistended, nontender. Normoactive bowel sounds. Negative for masses. Mild right sided costovertebral tenderness. Skin: Intact, warm, dry. No lesions or rashes noted. Hematologic: No petechiae or purpra. Mucosa appropriate color and normal nail bed color and refill. Extremities: Atraumatic, moves all extremities per self without difficulty or deficits, negative for cords or calf pain. Neurovascular unremarkable. Neuro: Awake, alert, oriented. Cranial nerves II through XII unremarkable. Cerebellum unremarkable. Motor and sensory unremarkable throughout. Exam nonfocal. Psychiatric: Mood and affect are appropriate. Normal thought process. Answering questions appropriately. Notes: *This patient was seen and evaluated during the 2019 SARS-CoV-2 novel coronavirus pandemic period. Community viral transmission is ongoing at time of this encounter and the emergency department is operating under pandemic response procedures. Patient's physical exam is within normal limits. She is nontender although has pain to the right mid abdomen that wraps to the flank area. Her skin is intact no concern for shingles outbreak. She is agreeable to basic lab work, IV fluids/medication and possible CT scan depending on her lab results. Patient does have a slight leukocytosis and UTI noted. I will do a CT of the abdomen and pelvis for further investigation of the right lower quadrant pain. CT demonstrates extensive right renal cortical defects likely representing infarct which can be seen in the setting of pyelonephritis. There is no evidence of obstructive uropathy or distal radiopaque calculus. Normal appendix. Small right ovarian cyst. Dr Veras, urologist called about patient - he will come see this patient. 1535: Dr Veras is here to talk/evaluate patient. We attempted to reach Dr Emerson at [facility] in [place]. He is currently unavailable, out until November 04. Eda was able to consult with an project development leader regarding this patient. He would like the patient transferred to [facility]. Spoke with Dr. Zuleta, ED, who is agreeable to excepting this patient. Dr Veras believes the patient is stable to go by private vehicle. Patient was made aware of diagnostics and the need for immediate follow-up at [facility]. Her vital signs are stable. She has had blood cultures x2 and received her IV antibiotics prior to transfer. Diagnostics: CBC, CMP, Lipase, UA, HCGU, Lactate, BC x2, LDH Therapeutics: IV fluids, Zofran, Toradol, Rocephin, Vancomycin Impression: History of Mitral Valve Replacement Pyelonephritis Renal Infarct Plan: Private vehicle to [place] ER Definitive disposition and diagnosis as appropriate pending reevaluation and review of above. Abdomen Pain Score (Numeric/FACES): 10 - Related Data Allergies Allergy/AdvReac Type Severity Reaction Status Date / Time acetaminophen [From Percocet] Allergy Vomiting Verified 09/18/20 10:21 ciprofloxacin [From Cipro] Allergy Vomiting Verified 09/18/20 10:21 ciprofloxacin HCl Allergy Vomiting Verified 09/18/20 10:21 [From Cipro] erythromycin base Allergy Vomiting Verified 09/18/20 10:21 [Erythromycin Base] hydrocodone [From Vicodin] Allergy Vomiting Verified 09/18/20 10:21 oxycodone [From Percocet] Allergy Vomiting Verified 09/18/20 10:21 Sulfa (Sulfonamide Allergy Vomiting Verified 09/18/20 10:21 Antibiotics) Home Meds: Home Meds Albuterol [Ventolin HFA] 1 puff INH ASDIRECTED PRN 07/15/20 [History] Aspirin 81 mg PO DAILY 07/15/20 [History] Fluticasone Propion/Salmeterol [Advair 250-50 Diskus] 1 puff INH BID 07/15/20 [History] Pantoprazole Sodium [Protonix] 40 mg PO DAILY 07/15/20 [History] Warfarin [Coumadin] 3 mg PO ASDIRECTED 07/15/20 [History] buPROPion HCL [Wellbutrin SR] 150 mg PO BID 07/15/20 [History] Hydrochlorothiazide/Lisinopril [Lisinopril-HCTZ 10-12.5 MG] 1 tab PO DAILY 09/18/20 [History] Metoprolol Succinate 50 mg PO 09/18/20 [History] Tamsulosin [Tamsulosin 24 Hr] 0.4 mg PO 09/18/20 [History] lisinopriL [Lisinopril] 20 mg PO 09/18/20 [History] traMADol [Ultram] 50 mg PO Q6H PRN 09/18/20 [History] Past Medical History HEENT History: Reports: None Cardiovascular History: Reports: None Other Cardiovascular History: Valve Problem Respiratory History: Reports: None Gastrointestinal History: Reports: GERD Genitourinary History: Reports: None TRANSMISSION WORKER History: Reports: Musculoskeletal History: Reports: None Neurological History: Reports: None Psychiatric History: Reports: None Endocrine/Metabolic History: Reports: None, Obesity/BMI 30+ Insulin Pump Model and Clinical Data Associate: None Hematologic History: Reports: None Immunologic History: Reports: None Oncologic (Cancer) History: Reports: None Dermatologic History: Reports: None - Infectious Disease History Infectious Disease History: Reports: None - Past Surgical History Head Surgeries/Procedures: Reports: None HEENT Surgical History: Reports: Tonsillectomy Cardiovascular Surgical History: Reports: Other (See Below) Other Cardiovascular Surgeries/Procedures: Mitral Valve Replacement Female Surgical History: Reports: Endometrial Ablation, Tubal Ligation Social & Family History - Family History Family Medical History: No Pertinent Family History - Caffeine Use Caffeine Use: Reports: Soda ED ROS GENERAL - Review of Systems Review Of Systems: Comprehensive ROS is negative, except as noted in HPI. ED EXAM, GI/ABD - Physical Exam Exam: See Below (See dictation) Course - Vital Signs Last Recorded V/S: Last Vital Signs Temp 98.1 F 09/18/20 10:17 Pulse 88 09/18/20 17:39 Resp 18 09/18/20 17:39 BP 126/87 09/18/20 17:39 Pulse Ox 100 09/18/20 17:39 - Orders/Labs/Meds Orders: Active Orders 24 hr Category Date Time Status CULTURE BLOOD [BC] Stat Lab 09/18/20 15:05 Received CULTURE BLOOD [BC] Stat Lab 09/18/20 15:17 Results CULTURE URINE [RM] Stat Lab 09/18/20 11:40 Received Blood Culture x2 Reflex Set [OM.PC] Stat Oth 09/18/20 14:52 Ordered Saline Lock Insert [OM.PC] Stat Oth 09/18/20 10:06 Ordered Labs: Laboratory Tests 09/18/20 09/18/20 09/18/20 Range/Units 10:15 10:15 11:40 WBC 12.26 H (4.0-11.0) K/uL RBC 5.36 (4.30-5.90) M/uL Hgb 14.8 (12.0-16.0) g/dL Hct 44.4 (36.0-46.0) % MCV 82.8 (80.0-98.0) fL MCH 27.6 (27.0-32.0) pg MCHC 33.3 (31.0-37.0) g/dL RDW Std Deviation 44.5 (28.0-62.0) fl RDW Coeff of Aniket 15 (11.0-15.0) % Plt Count 451 H (150-400) K/uL MPV 9.30 (7.40-12.00) fL Neut % (Auto) 67.9 (48.0-80.0) % Lymph % (Auto) 23.6 (16.0-40.0) % Starr % (Auto) 6.0 (0.0-15.0) % Eos % (Auto) 1.8 (0.0-7.0) % Baso % (Auto) 0.7 (0.0-1.5) % Neut # (Auto) 8.3 H (1.4-5.7) K/uL Lymph # (Auto) 2.9 H (0.6-2.4) K/uL Starr # (Auto) 0.7 (0.0-0.8) K/uL Eos # (Auto) 0.2 (0.0-0.7) K/uL Baso # (Auto) 0.1 (0.0-0.1) K/uL Nucleated RBC % 0.0 /100WBC Nucleated RBCs # 0 K/uL INR Lactate (0.20-2.00) mmol/L Sodium 136 (136-145) mmol/L Potassium 3.8 (3.5-5.1) mmol/L Chloride 100 (98-107) mmol/L Carbon Dioxide 23.4 (21.0-32.0) mmol/L BUN 14 (7.0-18.0) mg/dL Creatinine 1.1 H (0.6-1.0) mg/dL Est Cr Clr Drug Dosing 59.34 mL/min Estimated GFR (MDRD) 54.2 ml/min Glucose 135 H (74-106) mg/dL Calcium 9.0 (8.5-10.1) mg/dL Total Bilirubin 0.9 (0.2-1.0) mg/dL AST 22 (15-37) IU/L ALT 26 (14-63) IU/L Alkaline Phosphatase 86 (46-116) U/L Lactate Dehydrogenase (81-234) U/L Total Protein 8.1 (6.4-8.2) g/dL Albumin 4.0 (3.4-5.0) g/dL Globulin 4.1 H (2.6-4.0) g/dL Albumin/Globulin Ratio 1.0 (0.9-1.6) Lipase 214 (73-393) U/L Urine Color YELLOW Urine Appearance SLT CLOUDY Urine pH 6.0 (5.0-8.0) Ur Specific [place] 1.025 (1.001-1.035) Urine Protein TRACE H (NEGATIVE) mg/dL Urine Glucose (UA) NEGATIVE (NEGATIVE) mg/dL Urine Ketones NEGATIVE (NEGATIVE) mg/dL Urine Occult Blood SMALL H (NEGATIVE) Urine Nitrite NEGATIVE (NEGATIVE) Urine Bilirubin NEGATIVE (NEGATIVE) Urine Urobilinogen 0.2 (<2.0) EU/dL Ur Leukocyte Esterase TRACE H (NEGATIVE) Urine RBC 0-3 (0-2/HPF) Urine WBC 2-5 (0-5/HPF) Ur Epithelial Cells MANY (NONE-FEW) Urine Bacteria 2+ H (NEGATIVE) Urine HCG, Qual (NEGATIVE) SARS-CoV-2 RNA (VERONICA) (NEGATIVE) 09/18/20 09/18/20 09/18/20 Range/Units 11:40 15:04 15:04 WBC (4.0-11.0) K/uL RBC (4.30-5.90) M/uL Hgb (12.0-16.0) g/dL Hct (36.0-46.0) % MCV (80.0-98.0) fL MCH (27.0-32.0) pg MCHC (31.0-37.0) g/dL RDW Std Deviation (28.0-62.0) fl RDW Coeff of Aniket (11.0-15.0) % Plt Count (150-400) K/uL MPV (7.40-12.00) fL Neut % (Auto) (48.0-80.0) % Lymph % (Auto) (16.0-40.0) % Starr % (Auto) (0.0-15.0) % Eos % (Auto) (0.0-7.0) % Baso % (Auto) (0.0-1.5) % Neut # (Auto) (1.4-5.7) K/uL Lymph # (Auto) (0.6-2.4) K/uL Starr # (Auto) (0.0-0.8) K/uL Eos # (Auto) (0.0-0.7) K/uL Baso # (Auto) (0.0-0.1) K/uL Nucleated RBC % /100WBC Nucleated RBCs # K/uL INR 2.57 Lactate 0.9 (0.20-2.00) mmol/L Sodium (136-145) mmol/L Potassium (3.5-5.1) mmol/L Chloride (98-107) mmol/L Carbon Dioxide (21.0-32.0) mmol/L BUN (7.0-18.0) mg/dL Creatinine (0.6-1.0) mg/dL Est Cr Clr Drug Dosing mL/min Estimated GFR (MDRD) ml/min Glucose (74-106) mg/dL Calcium (8.5-10.1) mg/dL Total Bilirubin (0.2-1.0) mg/dL AST (15-37) IU/L ALT (14-63) IU/L Alkaline Phosphatase (46-116) U/L Lactate Dehydrogenase (81-234) U/L Total Protein (6.4-8.2) g/dL Albumin (3.4-5.0) g/dL Globulin (2.6-4.0) g/dL Albumin/Globulin Ratio (0.9-1.6) Lipase (73-393) U/L Urine Color Urine Appearance Urine pH (5.0-8.0) Ur Specific [place] (1.001-1.035) Urine Protein (NEGATIVE) mg/dL Urine Glucose (UA) (NEGATIVE) mg/dL Urine Ketones (NEGATIVE) mg/dL Urine Occult Blood (NEGATIVE) Urine Nitrite (NEGATIVE) Urine Bilirubin (NEGATIVE) Urine Urobilinogen (<2.0) EU/dL Ur Leukocyte Esterase (NEGATIVE) Urine RBC (0-2/HPF) Urine WBC (0-5/HPF) Ur Epithelial Cells (NONE-FEW) Urine Bacteria (NEGATIVE) Urine HCG, Qual NEGATIVE (NEGATIVE) SARS-CoV-2 RNA (VERONICA) (NEGATIVE) 09/18/20 09/18/20 Range/Units 15:04 15:30 WBC (4.0-11.0) K/uL RBC (4.30-5.90) M/uL Hgb (12.0-16.0) g/dL Hct (36.0-46.0) % MCV (80.0-98.0) fL MCH (27.0-32.0) pg MCHC (31.0-37.0) g/dL RDW Std Deviation (28.0-62.0) fl RDW Coeff of Aniket (11.0-15.0) % Plt Count (150-400) K/uL MPV (7.40-12.00) fL Neut % (Auto) (48.0-80.0) % Lymph % (Auto) (16.0-40.0) % Starr % (Auto) (0.0-15.0) % Eos % (Auto) (0.0-7.0) % Baso % (Auto) (0.0-1.5) % Neut # (Auto) (1.4-5.7) K/uL Lymph # (Auto) (0.6-2.4) K/uL Starr # (Auto) (0.0-0.8) K/uL Eos # (Auto) (0.0-0.7) K/uL Baso # (Auto) (0.0-0.1) K/uL Nucleated RBC % /100WBC Nucleated RBCs # K/uL INR Lactate (0.20-2.00) mmol/L Sodium (136-145) mmol/L Potassium (3.5-5.1) mmol/L Chloride (98-107) mmol/L Carbon Dioxide (21.0-32.0) mmol/L BUN (7.0-18.0) mg/dL Creatinine (0.6-1.0) mg/dL Est Cr Clr Drug Dosing mL/min Estimated GFR (MDRD) ml/min Glucose (74-106) mg/dL Calcium (8.5-10.1) mg/dL Total Bilirubin (0.2-1.0) mg/dL AST (15-37) IU/L ALT (14-63) IU/L Alkaline Phosphatase (46-116) U/L Lactate Dehydrogenase 384 H (81-234) U/L Total Protein (6.4-8.2) g/dL Albumin (3.4-5.0) g/dL Globulin (2.6-4.0) g/dL Albumin/Globulin Ratio (0.9-1.6) Lipase (73-393) U/L Urine Color Urine Appearance Urine pH (5.0-8.0) Ur Specific [place] (1.001-1.035) Urine Protein (NEGATIVE) mg/dL Urine Glucose (UA) (NEGATIVE) mg/dL Urine Ketones (NEGATIVE) mg/dL Urine Occult Blood (NEGATIVE) Urine Nitrite (NEGATIVE) Urine Bilirubin (NEGATIVE) Urine Urobilinogen (<2.0) EU/dL Ur Leukocyte Esterase (NEGATIVE) Urine RBC (0-2/HPF) Urine WBC (0-5/HPF) Ur Epithelial Cells (NONE-FEW) Urine Bacteria (NEGATIVE) Urine HCG, Qual (NEGATIVE) SARS-CoV-2 RNA (VERONICA) NEGATIVE (NEGATIVE) Departure - Departure Time of Disposition: 17:00 Disposition: DC/Tfer to [facility] 02 Clinical Impression: H/O mitral valve replacement, Renal infarct, Pyelonephritis - Discharge Information Referrals: Mina Colmenares MD [Primary Care Provider] - Forms: ED Department Discharge Sepsis Event Note (ED) - Focused Exam Vital Signs: Vital Signs Temp Pulse Resp BP Pulse Ox 09/18/20 17:39 88 18 126/87 100 09/18/20 15:25 94 18 122/81 100 09/18/20 11:34 93 123/67 100 09/18/20 10:17 98.1 F 91 18 154/91 H 99 - My Orders Last 24 Hours: My Active Orders 09/18/20 10:06 Saline Lock Insert [OM.PC] Stat 09/18/20 11:40 CULTURE URINE [RM] Stat 09/18/20 14:52 Blood Culture x2 Reflex Set [OM.PC] Stat 09/18/20 15:05 CULTURE BLOOD [BC] Stat 09/18/20 15:17 CULTURE BLOOD [BC] Stat - Assessment/Plan Last 24 Hours: My Active Orders 09/18/20 10:06 Saline Lock Insert [OM.PC] Stat 09/18/20 11:40 CULTURE URINE [RM] Stat 09/18/20 14:52 Blood Culture x2 Reflex Set [OM.PC] Stat 09/18/20 15:05 CULTURE BLOOD [BC] Stat 09/18/20 15:17 CULTURE BLOOD [BC] Stat
[2020-09-18] MEDS ORDERED: Ketorolac 30 MG/ML SDV IVPUSH ONE (10:22)
--- NOTE | 2020-09-18 10:30 | PCM.SN.2 ---
- Free Text/Narrative Note: G done at 10:13 AM sinus rhythm with a heart rate of 87 a SC interval of 146 a QRS axis of 44 QT of 468. There is minimal ST elevation when compared to 07/15/2020 is no significant change except axis which may be lead placement. Impression no acute injury
[2020-09-18 10:59] LABS: POTASSIUM,K 3.8 mmol/L (3.5-5.1)
[2020-09-18 11:08] LABS: CARBON DIOXIDE,CO2 23.4 mmol/L (21.0-32.0)
[2020-09-18] MEDS ORDERED: Morphine 2 MG/ML SYRINGE IVPUSH ONE (13:55)
--- NOTE | 2020-09-18 14:52 | CT ---
Indication: Right lower quadrant pain Technique: Volumetric multidetector CT images of the abdomen and pelvis were obtained after the administration of intravenous contrast. Delayed images were also obtained. 100 cc Isovue 370 low osmolar intravenous contrast Comparison: None available. Findings: The lung bases demonstrate basilar atelectasis and parenchymal scarring. The liver is normal in attenuation without intrahepatic biliary ductal dilatation. The portal vein is patent. The gallbladder is unremarkable without evidence of radiopaque calculus. There is no significant common biliary ductal dilatation or abrupt cut off. The spleen is normal in enhancement and size. The stomach and duodenum are grossly unremarkable. The pancreas is normal in enhancement without significant atrophy. The adrenal glands are unremarkable. The right kidney demonstrates extensive renal cortical defects likely representing sequela of infarct or pyelonephritis. There are cystic changes within the left kidney. There is no evidence of obstructive uropathy were distal radiopaque calculus. There is a mild amount of stool seen throughout the colon. There is mild distal colonic diverticulosis. The appendix is unremarkable. There is no significant mesenteric, retroperitoneal, or pelvic sidewall lymph nodes. The aorta is nonaneurysmal. There is no significant atherosclerotic disease appreciated. There is demonstration of a cyst within the residual right ovary. There is prior hysterectomy. Otherwise, the pelvic viscera are within normal limits. There is no free fluid or free air. The anterior abdominal wall is intact without significant hernias. The lumbar vertebral body heights are grossly maintained with mild likely spasmodic straightening of the normal lordosis. Impression: Demonstration of extensive right renal cortical defects likely representing infarct which can be seen in the setting of pyelonephritis. There is no evidence of obstructive uropathy or distal radiopaque calculus. Normal appendix. Small right ovarian cyst. Please note that all CT scans at this facility use dose modulation, iterative reconstruction, and/or weight-based dosing when appropriate to reduce radiation dose to as low as reasonably achievable. Dictated by Madi Rojo MD @ Sep 18 2020 2:30PM Signed by Dr. Madi Rojo @ Sep 18 2020 2:49PM
[2020-09-18] MEDS ORDERED: cefTRIAXone 1 GM in Premix Bag 1 BAG IV ONE ×2 (15:36→15:38)
[2020-09-18] MEDS ORDERED: Vancomycin 1 GM AdvVial ONE (16:09)
[2020-09-18] MEDS ORDERED: Sodium Chloride 0.9% 250 ML ONE (16:11)
[2020-09-18] MEDS ORDERED: Iopamidol 755 MG/ML 500 ML Multipack Bottle IVPUSH STA (18:14)
== END 2020-09-18 17:42 ==
LOC: MW.ED 09:42
DX: N12 Tubulo-interstitial nephritis, not specified as acute or chronic (principal); N28.0 Ischemia and infarction of kidney; K21.9 Gastro-esophageal reflux disease without esophagitis; E66.9 Obesity, unspecified; Z68.33 Body mass index [BMI] 33.0-33.9, adult; Z95.4 Presence of other heart-valve replacement; Z88.6 Allergy status to analgesic agent; Z88.1 Allergy status to other antibiotic agents; Z88.5 Allergy status to narcotic agent; Z88.2 Allergy status to sulfonamides; Z79.82 Long term (current) use of aspirin; Z79.899 Other long term (current) drug therapy; Z20.822 Contact with and (suspected) exposure to COVID-19
CPT/HCPCS: 36415; 74177; 80053; 81001; 81025; 83605; 83615; 83690; 85025; 85610; 87040; 87086; 87635; 93005; 96365; 96367; 96375; 99285; J0696; J1885; J2405; J3370; J7030; J7050; Q9967; 93010; 99283; U0002